=== PATIENT | male | born 1950 | race Caucasian/White ===

== ENCOUNTER 2021-09-11 18:14 | Emergency (ER) | payer MEDICARE, OTHER, SELFPAY ==
[2021-09-11 18:38] VITALS: BP 152/90; PULSE 88; RESP 18; TEMP 35.9; O2SAT 98; BMI 24.3
--- NOTE | 2021-09-11 19:06 | W.ED.GENADLT ---
HPI - General Adult General: Chief complaint: Airway/Esophagus Foreign Body Stated complaint: Choking Something stuck in throat Time Seen by Provider: 09/11/21 18:54 History of Present Illness: HPI narrative: 71-year-old male with no prior history of esophageal stricture or obstruction. He presents after eating pork tenderloin around 2 hours ago, and feels like he has a piece stuck in my throat . He points to his mid chest. He is not having significant pain. No evidence of bleeding. He has not been retching or vomiting. He is having trouble with secretions, but not all of them. He brings in a spit bucket with him. Onset (ago): hour(s) (2) Location: neck and chest Radiation: non-radiation Severity: mild Pain Consistency: constant Relieving factors: none Associated symptoms: Reports chest pain (Not pain, discomfort and obstructed feeling) and nausea; Deny cough, diaphoresis, dyspnea, fevers/chills, short of breath, vomiting or weakness Review of Systems Const: Denies: diaphoresis Eyes: Denies: change in vision Card: Reports: chest pain (Not pain, discomfort and obstructed feeling) Resp: Denies: dyspnea GI: Reports: nausea; Denies: vomiting Physical Exam Const: COMMON NORMALS: no acute distress, patient oriented x3 and alert Chest: COMMONS NORMALS: normal inspection of the chest Resp: COMMON NORMALS: normal respiratory effort, No use of accessory muscles and clear to auscultation bilaterally AUSCULTATION: clear to auscultation bilaterally Cardio: COMMON NORMALS: regular rate and regular rhythm RATE: regular rate RHYTHM: regular rhythm GI: COMMON NORMALS: Normal to inspection, nondistended, normoactive bowel sounds present, Soft to palpation and non-tender PALPATION: Yes Soft to palpation Neuro: COMMON NORMALS: patient oriented x3 SENSORIUM/ORIENTATION: Yes alert Course Vital Signs: Vital signs: Vital Signs Temperature 96.6 F L 09/11/21 18:38 Pulse Rate 68 09/11/21 20:50 Respiratory Rate 16 09/11/21 20:50 Blood Pressure 119/68 09/11/21 20:50 Pulse Oximetry 98 09/11/21 20:50 MDM - General Adult MDM Narrative: Medical decision making narrative: Patient was given glucagon, nitroglycerin, and check the [employer]. This relieved his obstruction. Post relief, chest x-ray shot with Gastrografin showing a clear chest, no evidence of obstruction or rupture. The patient is feeling much better. He is asymptomatic currently, and tolerating oral liquids well. He will be allowed home Discharge Plan Discharge Patient Disposition: Home Clinical Impression: Impacted esophageal foreign body Qualifiers: Encounter type: initial encounter Qualified Code(s): T18.108A - Unspecified foreign body in esophagus causing other injury, initial encounter Condition: Stable Discharge Orders: Discharge ED (Routine); Ordered 09/11/21 Ordered By: True Curran Referrals: Chaitanya Quarles MD [Physician] - 7-10 days Patient Instructions: Opioid Safety Activity Restrictions/Additional Instructions: Let your primary care provider know that you are here with an esophageal obstruction over the weekend. They will want to refer you to surgery for further work-up, likely. The surgery clinic physician name and number is on your discharge instructions to call. Return for any development of chest pain, trouble swallowing, vomiting blood, any other concerning symptoms. Coding Level of Care Code ED Senior Policy Analyst for Chg Fwd Exam Detailed
[2021-09-11] MEDS: nitroglycerin 0.4 mg sublingual Tablet SUBLINGUAL (19:22)
--- NOTE | 2021-09-11 19:45 | XRR_ITS ---
PROCEDURE INFORMATION: Exam: XR Chest Exam date and time: 09/11/2021 7:45 PM Age: 71 years old Clinical indication: Dyspnea; Additional info: With gastrografin esophageal obstruction. PT got a pork chop stuck in throat. Done with gastrografin TECHNIQUE: Imaging protocol: XR of the chest. Views: 1 view. COMPARISON: CR Chest 2 views* [id number] 04/14/2016 10:00 AM FINDINGS: Lungs: There is some mild infiltrate or atelectasis at the left lung base. Pleural spaces: Unremarkable. No pleural effusion. No pneumothorax. Heart/Mediastinum: There is a calcified right hilar lymph node in keeping with old granulomatous disease. Heart is within normal limits of size. Bones/joints: Unremarkable. Gastrointestinal tract: There is some Gastrografin contrast material seen in the distal esophagus and within the stomach. XR/XR chest 1V [id number] IMPRESSION: Mild left basilar infiltrate or atelectasis. Radiation Dose CTDIVOL = (mGy): DLP = (mGy-cm)
[2021-09-11] MEDS: diatrizoate meglumine 30 mL Sol PO (20:01)
[2021-09-11 20:50] VITALS: BP 119/68; PULSE 68; RESP 16; O2SAT 98
== END 2021-09-11 20:51 | disposition home or self-care (01) ==
PROVIDERS: Emergency Provider Emergency Medicine
DX: T18.108A Unspecified foreign body in esophagus causing other injury, initial encounter (principal); X58.XXXA Exposure to other specified factors, initial encounter
CPT/HCPCS: 71045; 96374; 99283; J1610; Q9963

== ENCOUNTER 2022-08-03 16:17 | Emergency (ER) | payer MEDICARE, OTHER, SELFPAY ==
[2022-08-03 17:03] VITALS: BP 154/88; PULSE 78; RESP 16; TEMP 36.6; O2SAT 96; BMI 25.1
--- NOTE | 2022-08-03 20:00 | CTR_ITS ---
PROCEDURE INFORMATION: Exam: CT Head Without Contrast Exam date and time: 08/03/2022 8:28 PM Age: 72 years old Clinical indication: Visual disturbance; Patient HX: Sudden onset of vision loss to left eye this morning, now resolved. ; Additional info: Temp vision loss TECHNIQUE: Imaging protocol: Computed tomography of the head without contrast. Radiation optimization: All CT scans at this facility use at least one of these dose optimization techniques: automated exposure control; mA and/or kV adjustment per patient size (includes targeted exams where dose is matched to clinical indication); or iterative reconstruction. COMPARISON: No relevant prior studies available. RADIATION DOSE METRICS: Total DLP (mGy-cm): 1067.28 FINDINGS: Brain: Normal. No hemorrhage. Unremarkable white matter. No mass effect. Cerebral ventricles: No ventriculomegaly. Paranasal sinuses: Visualized sinuses are unremarkable. No fluid levels. Mastoid air cells: Visualized mastoid air cells are well aerated. Bones/joints: Unremarkable. No acute fracture. Soft tissues: Unremarkable. CT/CT head wo con* [id number] IMPRESSION: No acute intracranial abnormality.
[2022-08-03 20:06] VITALS: PULSE 80; RESP 17; O2SAT 96
--- NOTE | 2022-08-03 20:14 | ED_ITS ---
HPI - Eye Problem General: Chief complaint: Eye Problems Stated complaint: trouble seeing out of L Eye Time Seen by Provider: 08/03/22 19:53 History of Present Illness: 72-year-old male presents with complaints of some blurred vision and vision loss of his left eye. He reports that he had it when he got up this morning. That the vision is returned. I feel like me he had something in medial corner of the left eye. He presents at this time because is not having pain but he just got to think about it was current concerned he might of had a stroke since he had lost the vision. He had no eye pain. He did flush his eye and it seemed of gotten better. At this time he reports no vision changes, pain with eye movement, pressure or any other symptoms. Associated symptoms: Denies fever(s), headache(s), nausea, neck pain or vomiting Review of Systems Const: Denies: fever(s) or chills Eyes: Reports: change in vision and blurry vision; Denies: blind spots, photophobia, eye discomfort, eye redness or seeing flashes ENMT: Denies: throat pain or ear or mastoid pain Card: Denies: chest pain, palpitations or irregular heart rhythm Resp: Denies: dyspnea, wheezing or pain on inspiration GI: Denies: abdominal pain, nausea or vomiting Musc: Denies: neck pain, back pain or muscle weakness Skin/Breast: Denies: rash or pruritus Neuro: Denies: headache(s), numbness in extremities, weakness in extremities, lack of coordination, difficulty walking, dizziness, behavioral changes or Slurred speech present Physical Exam Const: COMMON NORMALS: patient oriented x3 HENMT: COMMON NORMALS: normocephalic, hearing grossly normal bilaterally and moist oral mucous membranes HEAD & SCALP: normocephalic Eye: COMMON NORMALS: conjunctivae normal GENERAL EYE: appearance normal, both eyes and all related structures and normal light reflex ALIGNMENT: Yes alignment normal PERIORBITAL: periorbital findings normal EYELID: eyelids normal CONJUNCTIVA: Yes conjunctivae normal CORNEA: Yes corneas normal and fluorescein used (Unable to check with Wood lamp) DIRECT OPHTHALMOSCOPY: Yes normal light reflex Resp: COMMON NORMALS: normal respiratory effort, No retractions and No use of accessory muscles Cardio: COMMON NORMALS: regular rate and regular rhythm RATE: regular rate RHYTHM: regular rhythm GI: COMMON NORMALS: Soft to palpation and non-tender PALPATION: Yes Soft to palpation Extremity: COMMON NORMALS: normal to inspection, full ROM and capillary refill normal Neuro: COMMON NORMALS: patient oriented x3, CN's II-XII intact bilaterally, moves all extremities, no focal motor deficits, no sensory deficits noted and gait normal Psych: COMMON NORMALS: mental status grossly normal, Normal thought process present, cooperative, normal affect and speech normal SPEECH: Yes normal speech THOUGHT PROCESS: Normal thought process present Skin: COMMON NORMALS: no rashes or lesions noted GENERAL SKIN EXAM: no rashes or lesions noted Course Vital Signs: Vital signs: Vital Signs Temperature 97.8 F 08/03/22 17:03 Pulse Rate 69 08/03/22 21:04 Respiratory Rate 18 08/03/22 21:04 Blood Pressure 127/76 08/03/22 21:04 Pulse Oximetry 95 08/03/22 21:04 Oxygen Delivery Me thod 08/03/22 20:06 MDM - Eye Problem Medical Decision Making Patient was concerned about a stroke but had unlikely stroke symptoms however CT was performed that was negative. Patient likely has something in his eye that cleared. Patient had no symptoms throughout the ER. Nothing on exam. Was unable to perform a Noonan lamp fluorescein test since was lamp was not available. I recommend he follow-up with his developmental services worker tomorrow morning. He was in agreement with that plan. Patient stable and discharged Lab Data Radiology Impressions Head CT 08/03/22 20:00 IMPRESSION: No acute intracranial abnormality. Discharge Plan Discharge Patient Disposition: Home Clinical Impression: Blurred vision, left eye Condition: Stable Discharge Orders: Discharge ED (Routine); Ordered 08/03/22 Ordered By: Balbir Polk Discharge Diet: Usual diet Discharge Activity: Resume usual activity Patient Instructions: Blurred Vision (ED), Opioid Safety, Pain Management, Vision Problems Activity Restrictions/Additional Instructions: Please follow-up with your eye doctor tomorrow to have them recheck your eyes and repeat exam Coding Level of Care Code ED It Assistant for Lonnie Key Exam Comprehensive
[2022-08-03 20:35] VITALS: BP 144/83; PULSE 73; RESP 17; O2SAT 99
[2022-08-03 21:04] VITALS: BP 127/76; PULSE 69; RESP 18; O2SAT 95
== END 2022-08-03 21:06 | disposition home or self-care (01) ==
PROVIDERS: Emergency Provider Student in an Organized Health Care Education/Training Program
DX: H53.8 Other visual disturbances (principal)
CPT/HCPCS: 70450; 99284

== ENCOUNTER 2022-08-04 08:27 | Inpatient (IN) | payer MEDICARE, OTHER, SELFPAY ==
[2022-08-04] VITALS (78 sets, daily range): BP systolic 103–135; BP diastolic 70–97; PULSE 57–84; RESP 0–22; TEMP 36.2–37.3; O2SAT 81–99; BMI 23.6; BMI 25.4
--- NOTE | 2022-08-04 08:32 | CT_ITS ---
WS: [id number] CT HEAD TECHNIQUE: Noncontrast CT of the head obtained from the skullbase to the vertex. CLINICAL INFORMATION: LKW 2230 08/04 STROKE ALERT LT FACIAL DROOP SLURRED SPEECH COMPARISON: None. DLP: All CT scans at [facility] use at least one of these dose optimization techniques: automated e xposure control; mA and/or kV adjustment per patient size (includes targeted exams where dose is matc hed to clinical indication); or iterative reconstruction. FINDINGS: No evidence of intracranial hemorrhage or mass effect. Ventricular system and basal cisterns are mo nt. Mild small vessel changes with mild parenchymal volume loss. No extra-axial fluid collections. No evidence of mass or mass effect. Normal millan-white differentiation.Mild intracranial vascular calcif ication. Calcification involving the RIGHT greater than LEFT M1 segments. Paranasal sinuses and mastoid air cells are well aerated. .Normal visualized soft tissues. CT/CT head wo con* [id number] IMPRESSION: 1. No evidence of intracranial hemorrhage or mass effect. 2. Mild small vessel changes with mild parenchymal volume loss. 3. Mild intracranial vascular calcification. Calcification involving the RIGHT greater than LEFT M1 segments. 4. No other significant findings. Notified Elvin Lynn DO at 08/04/2022 8:41 AM.
[2022-08-04 08:36] LABS: Glucose Point of Care 126 mg/dL (70-110)
--- NOTE | 2022-08-04 08:42 | CT_ITS ---
WS: [id number] CTA HEAD AND NECK TECHNIQUE: Contrast enhanced CTA of the head and neck with coronal and sagittal reformatted images an d maximum intensity projection (MIP) images. NASCET criteria utilized. CLINICAL INFORMATION: CVA COMPARISON: None. DLP: 479.[address] scans at [facility] use at least one of these dose optimization techniques: automated e xposure control; mA and/or kV adjustment per patient size (includes targeted exams where dose is matc hed to clinical indication); or iterative reconstruction. FINDINGS: RIGHT: RIGHT common carotid artery is patent. No significant RIGHT ICA stenosis. ICA is patent to the skull base. LEFT: LEFT common carotid artery is patent. No significant LEFT ICA stenosis. Minimal atheromatous pl aque LEFT carotid bulb. LEFT ICA is patent to the skull base. INTRACRANIAL CTA: RIGHT dominant vertebral artery. Poor intermittent flow in the smaller LEFT vertebral artery with no significant calcified plaque suspicious for dissection. High-grade stenosis of the LEFT vertebral art luis origin. LEFT vertebral artery reconstitutes distally proximal to the basilar origin. Basilar artery is patent with normal flow. Normal vascularity to the FEED MILL TENDER territory bilaterally. Both ICAs are patent at the skull base. Tortuous cavernous carotid arteries. Normal vascularity to th e JAK and MCA territories bilaterally. No evidence of flow-limiting stenosis or aneurysm. Slight atelectasis in the dependent upper lungs. Straightening of the normal cervical lordosis. Mild spondylitic changes cervical spine. Normal posterior nasopharynx. Normal parapharyngeal fat. Normal s alivary glands. CT/CT angio headneck* [id number] IMPRESSION: 1. No significant ICA stenosis bilaterally. Both ICAs are patent to the skull base. 2. No significant flow-limiting intracranial stenosis. Normal vascularity to t he JAK and MCA territories bilaterally. 3. RIGHT dominant vertebral artery. Poor intermittent flow in the smaller LEFT vertebral artery with no significant calcified plaque may be due to dissection . Severe stenosis at the LEFT vertebral origin. LEFT vertebral artery reconstit utes distally. 4. Normal flow in the basilar artery and FEED MILL TENDER territory bilaterally. 5. No other suspicious findings. Notified Elvin Lynn DO at 08/04/2022 9:18 AM.
--- NOTE | 2022-08-04 08:43 | ECG_ITS ---
[facility] Test Date: 2022-08-04 Pat Name: Lucho Echeverria Department: Room: Gender: Male Metalizer: : 1950 Requested By: Elvin Cleary Order Number: [id number] [place] MD: Bety Mason M.D. Measurements Intervals Lamar Rate: 69 P: 38 MD: 162 QRS: 51 QRSD: 102 T: 57 QT: 373 QTc: 401 Interpretive Statements SINUS RHYTHM Compared to ECG 04/14/2016 09:28:27 No significant changes Electronically Signed On 08-04-2022 12:46:19 CDT by Bety Mason M.D. [id number]
--- NOTE | 2022-08-04 08:47 | ED_ITS ---
HPI - Neuro Symptoms/Deficit General: Chief Complaint: Neuro Symptoms/Deficit Stated Complaint: STROKE Time Seen by Provider: 08/04/22 08:42 Source: patient Mode of arrival: ambulatory History of Present Illness: 72-year-old male returns to the emergency room with left-sided facial droop weakness and confusion. Patient was seen last night he complained of some visual difficulties felt like he had something in his eye and then it had gotten better a CT was done and was negative he had no other localizing symptoms and he was discharged home with follow-up with ophthalmology. Onset (ago): hour(s) Last Observed Normal: 22:30 Severity: severe Quality: weak Relieving factors: none Exacerbating factors: none Context: gradual onset Associated symptoms: Reports tingling and weakness; Deny chest pain, cough, diaphoresis, fevers/chills, headache(s), anorexia, malaise, nausea, seizures, short of breath, syncope, vertigo or vomiting Treatments Prior to Arrival: none Review of Systems Const: Denies: fever(s), chills, fatigue, malaise or diaphoresis ENMT: Denies: throat pain, ear or mastoid pain, nasal discharge or nasal congestion Card: Denies: chest pain or syncope Resp: Denies: dyspnea, productive cough or non-productive cough GI: Denies: abdominal pain, nausea or vomiting : Denies: flank pain, difficulty urinating, dysuria, urinary frequency or urinary urgency Musc: Denies: neck pain or back pain Skin/Breast: Denies: rash or pruritus Neuro: Denies: headache(s) or vertigo [facility] ED PFSH: Medical History (Updated 08/04/22 @ 13:19 by Elvin Lynn DO) BPH (benign prostatic hyperplasia) Hyperlipidemia Hypertension Hypothyroidism Surgical History (Updated 08/04/22 @ 12:43 by Preston Cortez MD) History of exploratory laparotomy Secondary to bowel obstruction, adhesions found Family History (Updated 08/04/22 @ 12:44 by Preston Cortez MD) Other Hypertension Stroke Social History (Updated 08/04/22 @ 12:44 by Preston Cortez MD) Smoking and tobacco status: current every day smoker smokeless tobacco Smokeless tobacco user: chewing tobacco Alcohol intake: never NIH stroke score NIHSS: Level Of Consciousness - 1a: 0 Level Of Consciousness Questions - 1b: Both Correct Level Of Consciousness Commands - 1c: Both Correct Best G aze - 2: Partial Gaze Palsy Visual Moran - 3: Partial Hemianopia Facial Palsy - 4: Minor Paralysis Motor Arm Right - 5: No Drift Motor Arm Left - 5: No Drift Motor Leg Right - 6: No Drift Motor Leg Left - 6: No Drift Limb Ataxia - 7: Present In Two Limbs Sensory - 8: Mild To Moderate Loss Best Language - 9: Mild/Moderate Aphasia Dysarthia - 10: Mild/Moderate Dysarthia Extinction And Inattention - 11: 0 Score: Total Score: 8 Physical Exam Const: GENERAL APPEARANCE: cooperative and comfortable ORIENTATION/CONSCIOUSNESS: Yes awake HENMT: COMMON NORMALS: normocephalic, atraumatic and hearing grossly normal bilaterally HEAD & SCALP: normocephalic and atraumatic Resp: COMMON NORMALS: normal respiratory effort, No retractions, No use of accessory muscles and clear to auscultation bilaterally AUSCULTATION: clear to auscultation bilaterally Cardio: COMMON NORMALS: regular rate, regular rhythm and No murmurs present (Cardio) RATE: regular rate RHYTHM: regular rhythm GI: COMMON NORMALS: Soft to palpation and No hepatosplenomegaly present AUSCULTATION: Yes normoactive bowel sounds PALPATION: Yes Soft to palpation, No Tenderness to palpation present (GI), No Guarding due to palpation present (GI) and Yes No hepatosplenomegaly present Extremity: COMMON NORMALS: normal to inspection, capillary refill normal, no clubbing, cyanosis or edema, no calf tenderness and no pedal edema Neuro: OTHER: Bilateral ataxia. Skin: COMMON NORMALS: no rashes or lesions noted GENERAL SKIN EXAM: no rashes or lesions noted Course Vital Signs: Vital signs: Vital Signs Temperature 97.1 F L 08/04/22 08:34 Pulse Rate 73 08/04/22 08:42 Respiratory Rate 18 08/04/22 08:34 Blood Pressure 118/97 08/04/22 08:42 Pulse Oximetry 94 08/04/22 08:42 Oxygen Delivery Me thod 08/04/22 08:42 MDM - Neuro Symptoms/Deficit Medical Decision Making Clinically preserved posterior circulation stroke is out of the window for tPA and CTA of the head and neck did not show any embolisms. We will go and admit the patient discussed Dr. Santana she was also in the department and seen the patient discussed with hospitalist orders are written. Medical Records I reviewed the patient's medical records. Lab Data I reviewed the patient's lab results. : 08/04/22 08:40 08/04/22 08:[address] 08/04/22 08:32 IMPRESSION: 1. No evidence of intracranial hemorrhage or mass effect. 2. Mild small vessel changes with mild parenchymal volume loss. 3. Mild intracranial vascular calcification. Calcification involving the RIGHT greater than LEFT M1 segments. 4. No other significant findings. Notified Elvin Lynn DO at 08/04/2022 8:41 AM. Head/Neck CTA 08/04/22 08:42 IMPRESSION: 1. No significant ICA stenosis bilaterally. Both ICAs are patent to the skull base. 2. No significant flow-limiting intracranial stenosis. Normal vascularity to the JAK and MCA territories bilaterally. 3. RIGHT dominant vertebral artery. Poor intermittent flow in the smaller LEFT vertebral artery with no significant calcified plaque may be due to dissection. Severe stenosis at the LEFT vertebral origin. LEFT vertebral artery reconstitutes distally. 4. Normal flow in the basilar artery and CENTRAL OFFICE INSPECTOR territory bilaterally. 5. No other suspicious findings. Notified Elvin Lynn DO at 08/04/2022 9:18 AM. Chest X-Ray 08/04/22 10:48 IMPRESSION: No acute cardiopulmonary process. Laboratory Results WBC 16.2 10^3/uL (4.0-10.0) H 08/04/22 08:40 RBC 5.45 10^6/uL (4.1-5.3) H 08/04/22 08:40 Hgb 16.2 g/dL (11.7-16.6) 08/04/22 08:40 Hct 50.0 % (42.0-52.0) 08/04/22 08:40 MCV 91.7 fl (80-94) 08/04/22 08:40 MCH 29.7 pg (28.0-34.0) 08/04/22 08:40 MCHC 32.4 g/dL (30.0-36.0) 08/04/22 08:40 RDW 13.2 % (12.1-15.1) 08/04/22 08:40 Plt Count 299 10^3/cmm (130-400) 08/04/22 08:40 MPV 10.5 fL (7.4-10.4) H 08/04/22 08:40 Neut % (Auto) 49.4 % 08/04/22 08:40 Lymph % (Auto) 39.7 % 08/04/22 08:40 Barton % (Auto) 6.8 % 08/04/22 08:40 Eos % (Auto) 3.0 % 08/04/22 08:40 Baso % (Auto) 0.7 % 08/04/22 08:40 Neut # (Auto) 8.01 10^3/uL (1.8-7.7) H 08/04/22 08:40 Lymph # (Auto) 6.4 10^3/uL (0.8-4.8) H 08/04/22 08:40 Barton # (Auto) 1.1 10^3/uL (0.2-0.9) H 08/04/22 08:40 Eos # (Auto) 0.5 10^3/uL (0.0-0.8) 08/04/22 08:40 Baso # (Auto) 0.1 10^3/uL (0.0-0.1) 08/04/22 08:40 Nucleated RBC % (auto) 0 % 08/04/22 08:40 Nucleated RBCs # 0.0 /100WBC 08/04/22 08:40 PT 14.20 SECONDS (12.1-14.9) 08/04/22 08:51 INR 1.07 (0.8-1.2) 08/04/22 08:51 APTT 23.0 SECONDS (23.9-36.7) L 08/04/22 08:51 Sodium 136 mmol/L (136-145) 08/04/22 08:40 Potassium 4.3 mmol/L (3.5-5.1) 08/04/22 08:40 Chloride 104 mmol/L (98-107) 08/04/22 08:40 Carbon Dioxide 21 mmol/L (22-29) L 08/04/22 08:40 Anion Gap 15.3 (5-19) 08/04/22 08:40 BUN 16 mg/dL (8-23) 08/04/22 08:40 Creatinine 1.1 mg/dL (0.7-1.2) 08/04/22 08:40 GFR Calculation Not Reportable 08/04/22 08:40 Glucose 137 mg/dL (65-115) H 08/04/22 08:40 POC Glucose 126 mg/dL (70-110) H 08/04/22 08:32 Estimat Average Glucose 114 08/04/22 08:40 Hemoglobin A1c 5.6 % (4.0-6.0) 08/04/22 08:40 Calculated Osmolality 285 mOsm/kg (285-295) 08/04/22 08:40 Calcium 9.1 mg/dL (8.5-10.5) 08/04/22 08:40 Total Bilirubin 1.1 mg/dL (0.15-1.2) 08/04/22 08:40 AST 19 U/L (0-40) 08/04/22 08:40 ALT 15 U/L (0-41) 08/04/22 08:40 Alkaline Phosphatase 83 U/L (40-130) 08/04/22 08:40 Total Protein 7.0 g/dL (6.6-8.7) 08/04/22 08:40 Albumin 4.1 g/dL (3.5-5.2) 08/04/22 08:40 Globulin 2.9 g/dL (1.3-4.6) 08/04/22 08:40 TSH 1.38 uIU/mL (0.27-4.20) 08/04/22 08:40 Urine Color Yellow (Yellow) 08/04/22 09:55 Urine Appearance Clear (CLEAR) 08/04/22 09:55 Urine pH 5 (5-7) 08/04/22 09:55 Ur Specific Taylor 1.005 (1.005-1.030) 08/04/22 09:55 Urine Protein Neg (Negative) 08/04/22 09:55 Urine Glucose (UA) Norm (Normal) 08/04/22 09:55 Urine Ketones Negative (Negative) 08/04/22 09:55 Urine Blood Neg (Negative) 08/04/22 09:55 Urine Nitrate Negative (Negative) 08/04/22 09:55 Urine Bilirubin Neg (Negative) 08/04/22 09:55 Urine Urobilinogen Norm mg/dL (Negative) 08/04/22 09:55 Ur Leukocyte Esterase Negative (Negative) 08/04/22 09:55 Urine Opiates Screen Negative ng/mL (Negative) 08/04/22 09:55 Ur Barbiturates Screen Negative ng/mL (Negative) 08/04/22 09:55 Ur Phencyclidine Scrn Negative ng/mL (Negative) 08/04/22 09:55 Ur Amphetamines Screen Negative ng/mL (Negative) 08/04/22 09:55 U Benzodiazepines Scrn Negative ng/mL (Negative) 08/04/22 09:55 Urine Cocaine Screen Negative ng/mL (Negative) 08/04/22 09:55 U Marijuana (THC) Screen Negative ng/mL (Negative) 08/04/22 09:55 Discharge Plan Discharge Patient Disposition: Admitted As Inpatient Clinical Impression: Acute ischemic multifocal posterior circulation stroke, Blurred vision, left eye, Hypertension, Hyperlipidemia Condition: Stable Coding Level of Care Code ED Program Manager Rn for Lonnie Key Exam Detailed
[2022-08-04 08:50] LABS: Basophils # 0.1 10^3/uL (0.0-0.1); Basophils % 0.7 %; Eosinophils # 0.5 10^3/uL (0.0-0.8); Hemoglobin 16.2 g/dL (11.7-16.6); Lymphocytes # 6.4 10^3/uL (0.8-4.8); Lymphocytes % 39.7 %; Mean Corpuscular HGB Conc 32.4 g/dL (30.0-36.0); Mean Corpuscular Hemoglobin 29.7 pg (28.0-34.0); Mean Corpuscular Volume 91.7 fl (80-94); Mean Platelet Volume 10.5 fL (7.4-10.4); Monocytes # 1.1 10^3/uL (0.2-0.9); Monocytes % 6.8 %; Neutrophils # 8.01 10^3/uL (1.8-7.7); Neutrophils % 49.4 %; Nucleated Red Blood Cells % 0 %; Platelet Count 299 10^3/cmm (130-400); Red Blood Count 5.45 10^6/uL (4.1-5.3); Red Cell Distribution Width 13.2 % (12.1-15.1); White Blood Count 16.2 10^3/uL (4.0-10.0)
[2022-08-04] MEDS: iohexol 350 mg/mL 100 mL Btl IV (09:01)
[2022-08-04 09:06] LABS: Alanine Aminotransferase 15 U/L (0-41); Albumin Level 4.1 g/dL (3.5-5.2); Alkaline Phosphatase 83 U/L (40-130); Blood Urea Nitrogen 16 mg/dL (8-23); Calcium 9.1 mg/dL (8.5-10.5); Carbon Dioxide 21 mmol/L (22-29); Chloride 104 mmol/L (98-107); Globulin 2.9 g/dL (1.3-4.6); Glucose 137 mg/dL (65-115); Osmolality Calculated 285 mOsm/kg (285-295); Sodium 136 mmol/L (136-145); Total Bilirubin 1.1 mg/dL (0.15-1.2)
[2022-08-04 09:07] LABS: Anion Gap 15.3 (5-19); Aspartate Amino Transferase 19 U/L (0-40); Potassium 4.3 mmol/L (3.5-5.1)
[2022-08-04 09:15] LABS: INR 1.07 (0.8-1.2)
--- NOTE | 2022-08-04 09:16 | PM.SAN ---
Stroke Alert Activation ED Arrival Date: 08/04/22 ED Arrival Time: 08:34 ED Physican at Bedside: 08:34 Last Known Normal/at Baseline: 3-4 hours ago Other Last Known Well Infomation: The patient was seen in the emergency department yesterday for visual loss on the left. The nurse who saw him was present in the emergency department and he said it was left eye only. At the time he was seen by Dr. Balbir Polk at 1953 yesterday he said that his visual symptoms had resolved. He said the visual loss was present when he woke up yesterday so by the time he was seen yesterday afternoon he was out of the range for tPA. Everyone agreed that he had no neurologic signs or symptoms at the time that he was seen yesterday. He was brought in this morning because he was confused when he woke up. EMS reported left hemiparesis that resolved by the time I saw the patient and instead he had ataxia in all 4 limbs, ratchety eye movements and a dense left visual field cut. He is mildly confused. Speech mildly dysarthric. His CT scan of the head does not show an acute stroke. Dr. Hinkle and I both noticed that the left vertebral artery is poorly seen and thrombus in the proximal portion of the left vertebral versus dissection considerations. Full flow in the basilar and both posterior cerebral arteries. Stroke Alert Activated by: EMS Stroke Alert Activation Time: 08:18 Stroke MD @ Bedside Time: 08:40 NIH Stroke Scale Time: 08:40 NIH stroke score NIHSS: Level Of Consciousness - 1a: 0 Level Of Consciousness Questions - 1b: Both Correct Level Of Consciousness Commands - 1c: Both Correct Best Gaze - 2: Normal Visual Moran - 3: Complete Hemianopia Facial Palsy - 4: Minor Paralysis Motor Arm Right - 5: Drift Motor Arm Left - 5: Drift Motor Leg Right - 6: Drift Motor Leg Left - 6: Drift Limb Ataxia - 7: Present In Two Limbs Sensory - 8: Normal Best Language - 9: No Aphasia Dysarthia - 10: Mild/Moderate Dysarthia Extinction And Inattention - 11: 0 Score: Total Score: 10 Stroke Alert Data/Treatment Time to CT of Head: 08:39 CT Results Time: 08:46 CT Impression: No acute findings ? 1.? No evidence of intracranial hemorrhage or mass effect. 2.? Mild small vessel changes with mild parenchymal volume loss. 3.? Mild intracranial vascular calcification. Calcification involving the RIGHT greater than LEFT M1 segments. 4.? No other significant findings. ? Notified Elvin Lynn DO at 08/04/2022 8:41 AM. Signed By: Geraldo Hinkle MD Signed Date/Time: 08/04/22 0846 tPA Contraindication: tPA Contraindication: Medical contraindication tPA Admin Prior to Arrival: No Critical Care Time Critical Care Time: 30 - 74 mins A&P Assessment and plan (1) Acute ischemic multifocal posterior circulation stroke: Clinically he has involvement of the right posterior cerebral artery with left homonymous hemianopsia, ataxia in all 4 limbs and ratchety eye movements. He will be best served by antiplatelet therapy, pushing normal saline, cardiac work-up. Lipitor. Keep him flat today. He will need to be admitted. 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
--- NOTE | 2022-08-04 09:39 | PC.PHAR ---
pt unable to verify medications-pts verified pts medications- states the pt takes no otc medications-and only takes the 4 prescribed medications that are entered
[2022-08-04] MEDS: sodium chloride 0.9% 1,000 ML 999 ML IV (09:59)
[2022-08-04 10:17] LABS: Add Urine Microscopic? NO; Charge for UA Resulting for Rev
[2022-08-04 10:22] LABS: Bilirubin Urine Neg (Negative); Blood Urine Neg (Negative); Glucose Urine UA Norm (Normal); Ketones Urine Negative (Negative); Leukocyte Esterase Urine Negative (Negative); Nitrate Urine Negative (Negative); Protein Urine Neg (Negative); Specific Gravity, Urine 1.005 (1.005-1.030); Urine Appearance Clear (CLEAR); Urine Color Yellow (Yellow); Urobilinogen Urine Norm (Negative); pH Urine 5 (5-7)
[2022-08-04 10:28] LABS: Amphetamines Screen Urine Negative (Negative); Barbiturates Screen Urine Negative (Negative); Benzodiazepines Screen Urine Negative (Negative); Cocaine Screen Urine Negative (Negative); Opiate Screen Urine Negative (Negative); PCP Screen Urine Negative (Negative); THC Screen Urine Negative (Negative)
--- NOTE | 2022-08-04 10:48 | XRR_ITS ---
PROCEDURE INFORMATION: Exam: XR Chest Exam date and time: 08/04/2022 10:55 AM Age: 72 years old Clinical indication: Other: Stroke protocol; Additional info: CVA TECHNIQUE: Imaging protocol: Radiologic exam of the chest. Views: 1 view. Total images: 929 COMPARISON: CR XR chest 1V 13055 09/11/2021 7:53 PM FINDINGS: Lungs: Calcified node in right hilum unchanged. Pleural spaces: Unremarkable. No pleural effusion. No pneumothorax. Heart/Mediastinum: Unremarkable. No cardiomegaly. Bones/joints: Unremarkable. XR/XR chest 1V portable 50030 IMPRESSION: No acute cardiopulmonary process.
[2022-08-04] MEDS: sodium chloride 0.9% 1,000 ML 150 ML IV ×2 (11:09→20:08)
[2022-08-04 11:23] LABS: Estmated Average Glucose 114; Hemoglobin A1C 5.6 % (4.0-6.0)
--- NOTE | 2022-08-04 11:24 | P.HP_ITS ---
Providers/Chief Complaint Chief Complaint: STROKE History of Present Illness Lucho Echeverria is a 72 year old male who presents to the emergency department with mental status change. He had recently been seen with blurry vision in the left eye on August 03. During that visit no neurologic abnormality was found. At that time a CT scan of the head was negative, and stroke was felt unlikely. According to family his last known normal was approximately at that emergency department visit. Family reports this morning his brother got a call and the patient seemed confused. They somehow got disconnected so he went over to check on his brother and he was not acting appropriate. EMS was dispatched. Today, EMS had reported he had left hemiparesis. Emergency department physician and neurology saw him and ataxia in 4 limbs, and a dense left visual field cut and dysarthric speech was present. He was determined not to be a candidate for tPA. CTA demonstrated the left vertebral artery is poorly seen and thrombus or dissection could be considerations for this. He was not deemed a candidate for any type of thrombectomy. Patient himself seems confused, but can answer direct questions. He denies any pain currently. He wonders why he is here, and then wonders where here is. Review of Systems General: Reports: ROS unobtainable due to mental status Medications/Allergies Home Medications Medication Instructions Recorded Confirmed Last Taken Type amlodipine 5 mg tablet 5 mg PO DAILY 08/04/22 08/04/22 Unknown History levothyroxine 100 mcg tablet 100 mcg PO DAILY 08/04/22 08/04/22 Unknown History (Euthyrox) lisinopril 20 mg tablet 20 mg PO DAILY 08/04/22 08/04/22 Unknown History simvastatin 10 mg tablet 10 mg PO BEDTIME 08/04/22 08/04/22 Unknown History Allergies Allergy/AdvReac Type Severity Reaction Status Date / Time No Known Allergies Allergy Verified 08/03/22 17:06 PFSH Acute PFSH: Medical History (Updated 08/04/22 @ 12:53 by Preston Cortez MD) BPH (benign prostatic hyperplasia) Hyperlipidemia Hypertension Hypothyroidism Surgical History (Updated 08/04/22 @ 12:43 by Preston Cortez MD) History of exploratory laparotomy Secondary to bowel obstruction, adhesions found Family History (Updated 08/04/22 @ 12:44 by Preston Cortez MD) Other Hypertension Stroke Social History (Updated 08/04/22 @ 12:44 by Preston Cortez MD) Smoking and tobacco status: current every day smoker smokeless tobacco Smokeless tobacco user: chewing tobacco Alcohol intake: never Vitals/I&O/Wt Last Vital Signs Temp 97.1 F L 08/04/22 08:34 Pulse 73 08/04/22 08:34 Resp 18 08/04/22 08:34 BP 118/97 08/04/22 08:34 Pulse Ox 96 08/04/22 08:34 O2 Del Method 08/04/22 08:34 08/03/22 08/04/22 08/04/22 22:59 06:59 14:59 Intake Total 1000 / 1000 Balance 1000 / 1000 Weight last 48 hrs Weight 74.525 kg Physical Exam Narrative: General is a confused male, with ataxic limbs. HEENT: Atraumatic and normocephalic. Pupils are round. I have difficulty determining whether he has vision on either side. When presented with opp osition he does not seem to blink. Oropharynx is clear. Tongue is midline. Neck is supple no lymphadenopathy thyromegaly Cardiovascular regular rate and rhythm without murmur, no S3 or S4 Lungs clear no wheezing or crackles Abdomen is soft nontender positive bowel sounds. No obvious organomegaly exam is deferred Extremities no cyanosis clubbing or edema, cap refill brisk Skin no rash Neuro: Profoundly ataxic. Visual field loss noted. Confused. He is able to move all 4 extremities. I do not notice a hemiparesis. I get an NIHSS score of approximately 9. It appears the emergency department physician got an 8, neurology a 10. Data : 08/04/22 08:40 08/04/22 08:40 Other Labs: INR is normal LFTs are normal Hemoglobin A1c 5.6 LFTs normal TSH normal Urinalysis negative Urine drug screen negative Chest x-ray no infiltrate CTA neck demonstrates poor intermittent flow left vertebral artery with no significant plaque, severe stenosis left vertebral origin. No other flow- limiting abnormalities are noted CT head no acute findings A&P Assessment and plan (1) Acute ischemic multifocal posterior circulation stroke: Patient presenting with acute posterior circulations stroke Appreciate neurology consultation Keep patient flat, hydrate Initiate Plavix and aspirin High intensity statin Therapy consultations Echocardiogram Telemetry Consider outpatient event monitor Currently he will require one-to-one sitter when family is not present. Permissive hypertension DVT prophylaxis with Lovenox Status: Acute (2) Hypertension: Hold antihypertensives Permissive hypertension in the face of CVA Status: Acute (3) Hypothyroidism: TSH was checked and normal Status: Acute (4) Hyperlipidemia: Changed to high intensity statin Lipitor 80 mg daily Status: Acute Plan Other medical problems as outlined in his past medical history Full code Lovenox for DVT prophylaxis Attestations Medical Necessity Statement*: Will require greater than 2 midnight stay for evaluation and treatment of CVA with significant physical deficits Coding Level of Care Code Acute 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
[2022-08-04 11:25] LABS: Thyroid Stimulating Hormone 1.38 uIU/mL (0.27-4.20)
--- NOTE | 2022-08-04 11:26 | ECG_ITS ---
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 Measurements Intervals [place] Rate: 65 P: 52 [place]: 186 QRS: 58 QRSD: 99 T: 68 QT: 384 QTc: 400 Interpretive Statements SINUS RHYTHM Compared to ECG 08/04/2022 08:37:51 No significant changes Electronically Signed On 08-04-2022 20:40:42 CDT by Bety Mason M.D. [id number]
[2022-08-04] MEDS: midazolam 1 mg/mL INJ 2 mL IVP (12:27)
[2022-08-04] MEDS: fentaNYL 50 mcg/mL INJ 2mL IVP ×2 (12:27→16:14)
--- NOTE | 2022-08-04 14:14 | P.CONIM_ITS ---
Providers/Reason For Consult Consulting Physician/Specialty*: Urology/Orta Reason for Consult*: Urinary retention, inability to pass catheter Requesting Physician: Dr. Cortez Attending Physician: Dr. Cortez Primary Care Provider: Unknown History of Present Illness History of Present Illness Lucho Echeverria is a 72 year old male who I evaluated for the first time today at the request of Dr. Cortez. Patient has suffered a stroke and is being admitted through the emergency department for treatment of that. Apparently has had some fairly protracted period of time of lower urinary tract symptoms including dribbling of urine and poor force of stream. He is on no prostate medications. Attempts at catheter placement for volume management were unsuccessful with multiple attempts and multiple catheters. I was consulted for further evaluation. ` History obtained from patient and patient's family. Neither deny history of urethral stricture or prostate surgery. He reports that at some point in the past he was seen by urologist who looked into the bladder and he came off the table and never returned. Has not been on any prostate medication. 1 family member states that for at least 15+ years he has voided frequently with small amounts. Does drink a lot of fluid but never really voids very much at a time. No obvious hematuria was noted by anyone. Procedure: BEDSIDE FLEXIBLE CYSTOSCOPY with catheter placement over wire Patient was prepped with Betadine solution. Drape was placed. 2% lidocaine jelly was instilled into the urethra than a 16 Macedonian flexible cystoscope was advanced under direct vision into the urethra. The urethra was examined with advancement and it was normal. There is no false passages or strictures. Prostate was enlarged. He had a distended bladder. No gross lesions were identified on quick survey. Given these findings it was likely that he was simply clamping down on his external sphincter when the catheter was were being attempted to be passed earlier. A guidewire was passed through the scope and curled into the bladder and then a 16 Macedonian king salmon tip catheter was advanced over the guidewire into the bladder and 10 cc placed in the balloon with good function of the catheter confirmed before removing the guidewire. He tolerated procedure well without complications and was turned back over to the nursing staff with anticipation of admission as scheduled for treatment of his stroke. Review of Systems General: Reports: ROS unobtainable due to mental status Medications/Allergies Home Medications Medication Instructions Recorded Confirmed Last Taken Type amlodipine 5 mg tablet 5 mg PO DAILY 08/04/22 08/04/22 Unknown History levothyroxine 100 mcg tablet 100 mcg PO DAILY 08/04/22 08/04/22 Unknown History (Euthyrox) lisinopril 20 mg tablet 20 mg PO DAILY 08/04/22 08/04/22 Unknown History simvastatin 10 mg tablet 10 mg PO BEDTIME 08/04/22 08/04/22 Unknown History Allergies Allergy/AdvReac Type Severity Reaction Status Date / Time No Known Allergies Allergy Verified 08/03/22 17:06 Current Medications Generic Name Dose Route Start Last Admin Trade Name Cameronq PRN Reason Stop Dose Admin Sodium Chloride 1,000 mls @ 150 mls/hr 08/04/22 09:15 08/04/22 11:09 Sodium Chloride 0.9% IV 150 mls/hr .[id number] QUENTIN Administration PFSH Acute PFSH: Medical History BPH (benign prostatic hyperplasia) Hyperlipidemia Hypertension Hypothyroidism Surgical History History of exploratory laparotomy Secondary to bowel obstruction, adhesions found Family History Other Hypertension Stroke Social History Smoking and tobacco status: current every day smoker smokeless tobacco Smokeless tobacco user: chewing tobacco Alcohol intake: never Vitals/I&O/Wt Last Vital Signs Temp 97.1 F L 08/04/22 08:34 Pulse 70 08/04/22 11:00 Resp 18 08/04/22 08:34 BP 118/97 08/04/22 08:42 Pulse Ox 97 08/04/22 11:00 O2 Del Method 08/04/22 11:00 08/03/22 08/04/22 08/04/22 22:59 06:59 14:59 Intake Total 1000 / 1000 Balance 1000 / 1000 Weight last 48 hrs Weight 164 lb 4.8 oz Physical Exam Const: COMMON NORMALS: no acute distress, alert and well nourished GENERAL APPEARANCE: well kempt and well developed HENMT: COMMON NORMALS: normocephalic HEAD & SCALP: normal to inspection and normocephalic Neck/C-Spine: GENERAL: Yes normal visual inspection Resp: COMMON NORMALS: normal respiratory effort EFFORT & INSPECTION: Yes able to speak in complete sentences, No labored and No Actively coughing GI: OTHER: Soft, nontender. Bladder feels distended. : OTHER: Normal male genitalia. Circumcised phallus with normal meatus. Scrotum is grossly normal. Testicles descended bilaterally without masses or tenderness. No obvious inguinal hernias. Normal perineum. Prostate is large. No distinct nodularity felt. Extremity: COMMON NORMALS: no clubbing, cyanosis or edema Neuro: SENSORIUM/ORIENTATION: Yes alert Psych: COMMON NORMALS: mental status grossly normal APPEARANCE: Yes grossly normal and Yes well kempt ATTITUDE: Yes calm and Yes engaged MOOD & AFFECT: Yes anxious OTHER: Confused. He is able to be calm down by his family. Skin: COMMON NORMALS: no rashes or lesions noted and no jaundice GENERAL SKIN EXAM: no rashes or lesions noted Data : 08/04/22 08:40 08/04/22 08:40 A&P Assessment and plan (1) Acute urinary retention: Status: Acute (2) Difficult Bello catheter placement: Status: Acute (3) BPH loc w urin obs/LUTS: Longstanding lower urinary tract symptoms most likely consistent with BPH/obstruction. Recommendations for Bello catheter placed today include use it as long as needed and then discharge at will. Status: Acute Plan 1. Would recommend starting TAMSULOSIN 0.4 mg p.o. nightly Consult Attestations Medical Necessity Statement: See attending Coding Level of Care Code Acute Head Of Visual Merchandising for [facility] Diagnoses Acute urinary retention R33.8 Difficult Bello catheter placement T83.9XXA BPH loc w urin obs/LUTS N40.1
[2022-08-04] MEDS: morphine 4 mg/mL SDV 1 mL IVP (14:20)
[2022-08-04] MEDS: lidocaine 2% Urojet 20 mL TOPICAL (14:30)
[2022-08-04] MEDS: midazolam 1 mg/mL INJ 2 mL 2 MG IVP (16:14)
--- NOTE | 2022-08-04 18:45 | PC.NURSE ---
spoke with provider to report patient continues to try to get out of bed despite the simons this nurse irrigated simons and few small clots was removed and all irrigation removed small amount of drainage noted to head of appendage In structions received and read back to give haldol 5 mg IM x1 and morphine q4H IVP PRN
[2022-08-04] MEDS: haloperidol inj 5 mg/mL INJ 1 mL IM (18:51)
[2022-08-04] MEDS: morphine 4 mg/mL SDV 1 mL 2 MG IVP ×2 (19:14→23:30)
[2022-08-04] MEDS: enoxaparin 40 mg/0.4 mL Syringe SUBCUT (19:50)
[2022-08-04] MEDS: LORazepam 2 mg/mL INJ 1 mL 1 MG IM ×2 (19:51→23:15)
--- NOTE | 2022-08-04 20:16 | PC.NURSE ---
Manual irrigation to simons. Blood clots returned. Bladder scan shows 24 ml. Will monitor.
--- NOTE | 2022-08-04 23:35 | PC.NURSE ---
Bello manually irrigated. Small blood clots returned. Bladder scan shows 59 ml.
--- NOTE | 2022-08-04 23:42 | PC.NURSE ---
1 mg Ativan wasted with BURT Vasquez.
--- NOTE | 2022-08-04 23:42 | PC.NURSE ---
Patient attempting to get out of bed, continually saying I need to pee. Patient becoming combative with family as family is trying to keep patient in bed. Dr. Luo notified. See orders.
[2022-08-05] VITALS: BP 124/73; PULSE 66; RESP 17; TEMP 36.5; O2SAT 94
[2022-08-05] MEDS: sodium chloride 0.9% 1,000 ML 150 ML IV ×3 (01:03→16:28)
[2022-08-05 04:00] VITALS: BP 103/68; PULSE 77; RESP 17; TEMP 37.2; O2SAT 96
--- NOTE | 2022-08-05 04:18 | PC.NURSE ---
Manual irrigation done. Small blood clots returned. 53 ml on bladder scan.
[2022-08-05] MEDS: OLANZapine 10 mg VIAL IM (04:44)
[2022-08-05 05:00] LABS: Basophils # 0.1 10^3/uL (0.0-0.1); Basophils % 0.5 %; Eosinophils # 0.2 10^3/uL (0.0-0.8); Eosinophils % 1.1 %; Hematocrit 43.7 % (42.0-52.0); Hemoglobin 13.9 g/dL (11.7-16.6); Lymphocytes # 4.3 10^3/uL (0.8-4.8); Lymphocytes % 28.3 %; Mean Corpuscular HGB Conc 31.8 g/dL (30.0-36.0); Mean Corpuscular Hemoglobin 29.1 pg (28.0-34.0); Mean Corpuscular Volume 91.4 fl (80-94); Mean Platelet Volume 10.7 fL (7.4-10.4); Monocytes # 1.2 10^3/uL (0.2-0.9); Monocytes % 7.6 %; Neutrophils # 9.56 10^3/uL (1.8-7.7); Neutrophils % 62.2 %; Nucleated Red Blood Cells % 0 %; Platelet Count 211 10^3/cmm (130-400); Red Blood Count 4.78 10^6/uL (4.1-5.3); Red Cell Distribution Width 13.1 % (12.1-15.1); White Blood Count 15.3 10^3/uL (4.0-10.0)
--- NOTE | 2022-08-05 05:27 | PC.NURSE ---
Two family members have stayed at bedside with patient throughout night.
--- NOTE | 2022-08-05 05:27 | PC.NURSE ---
Patient became very restless and agitated at times throughout the night, trying to get out of bed, pulling at simons, and becoming combative with family members. Ativan given x2. Zyprexa given x1. Simons required manual irrigation x3 throughout shift.
[2022-08-05 05:33] LABS: Blood Urea Nitrogen 13 mg/dL (8-23); Calcium 8.2 mg/dL (8.5-10.5); Carbon Dioxide 19 mmol/L (22-29); Chloride 109 mmol/L (98-107); Chol HDL Ratio 3.71 mg/dL (1.0-5.00); Cholesterol 130 mg/dL (0-200); Glucose 92 mg/dL (65-115); HDL Cholesterol 35 mg/dL (60-100); LDL Cholesterol Calculated 74 mg/dL (50-129); LDL HDL Ratio 2.11 RATIO (0.00-3.22); Osmolality Calculated 286 mOsm/kg (285-295); Sodium 138 mmol/L (136-145); Triglycerides 107 mg/dL (0-150)
[2022-08-05 08:04] VITALS: RESP 17; O2SAT 96
[2022-08-05] MEDS: morphine 4 mg/mL SDV 1 mL 2 MG IVP (08:04)
--- NOTE | 2022-08-05 08:45 | PM.PN ---
Subjective Subjective: Family and patient had a difficult night. He had quite a bit of agitation upon awakening. He required quite a few doses of Zyprexa, and had some Ativan as well. MRI ordered for yesterday, for which the patient received some fentanyl and Versed could not be done secondary to agitation and movement. This is being attempted again today. Medications: Reviewed: Yes Vitals/I&O/Wt Last Vital Signs Temp 99.0 F 08/05/22 04:00 Pulse 77 08/05/22 04:00 Resp 17 08/05/22 08:04 BP 103/68 08/05/22 04:00 Pulse Ox 96 08/05/22 08:04 O2 Del Method 08/05/22 04:00 08/04/22 08/05/22 08/05/22 22:59 06:59 14:59 Intake Total 1000 / 2000 737.5 / 2737.5 Output Total 600 / 600 1240 / 1840 Balance 400 / 1400 -502.5 / 897.5 Weight last 48 hrs Weight 76.067 kg Weight 74.525 kg Physical Exam Narrative: General is a confused male, with ataxic limbs. Exam done with Dr. Santana HEENT: Atraumatic and normocephalic. Pupils are round. He was able to answer some questions. Speech quality is about the same as yesterday. Neck is supple no lymphadenopathy thyromegaly Cardiovascular regular rate and rhythm without murmur, no S3 or S4 Lungs clear no wheezing or crackles Abdomen is soft nontender positive bowel sounds. No obvious organomegaly Bello is noted Extremities no cyanosis clubbing or edema, cap refill brisk Skin no rash Neuro: Ataxic, confused, moving all extremities Urinary Catheter Management: Bello: Cath Placed During This Visit: yes Reason for Continuing Indwelling Catheter: Acute Urinary Retention or Obstruction Urinary Catheter Date of Insertion: 08/04/22 Data : 08/05/22 04:35 08/05/22 04:35 A&P Assessment and plan (1) Acute ischemic multifocal posterior circulation stroke: Patient presenting with acute posterior circulations stroke Appreciate neurology consultation Patient kept flat and hydrated initially. Try to mobilize some today if patient cooperative. Initiate Plavix and aspirin when able High intensity statin Therapy consultations Echocardiogram to be done Telemetry Consider outpatient event monitor Currently he will require one-to-one sitter when family is not present. Permissive hypertension, therefore his amlodipine and lisinopril have been held. DVT prophylaxis with Lovenox Have attempted MRI. Currently not successful despite preprocedure sedation with Zyprexa earlier this morning and Ativan and morphine given just prior to procedure. Discussed with neurology. Proceed with noncontrast CT scan. Status: Acute (2) Hypertension: Hold antihypertensives Permissive hypertension in the face of CVA Status: Acute (3) Hypothyroidism: TSH was checked and normal Status: Acute (4) Hyperlipidemia: Changed to high intensity statin Lipitor 80 mg daily Status: Acute Plan Secondary to the need for significant amounts of fluids, difficulty urinating, Bello was placed by urology yesterday. If he becomes more cooperative, and we can mobilize some try to discontinue this within the next 48 hours. 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
[2022-08-05] MEDS: LORazepam 2 mg/mL INJ 1 mL IVP (08:59)
--- NOTE | 2022-08-05 11:35 | PC.SLP ---
MANAGED CARE PROVIDER attempted to assess, however, the pt was sleeping and could not be awakened enough to participate at this time.
--- NOTE | 2022-08-05 12:23 | PC.OT ---
OT EVALUATION ATTEMPTED. PATIENT IS SLEEPING SOUNDLY AND DOES NOT AWAKEN. EVAL TO BE ATTEMPTED AGAIN AT A LATER TIME.
--- NOTE | 2022-08-05 12:28 | PC.CHAP ---
Pastoral Care Encounter/Spiritual Assessment Type of Contact [] Declined social worker delinquency prevention visit [] Patient/Family/Request visit [] Outpatient visit [] Follow-up visit [] Physician referral [] Code/Alert [X] Routine visit [] Staff referral [] Actively dying [] Patient sleeping [] Family support [] [] Out of room [] Palliative care [] [X] Receiving care in room [] Pre-surgical visit [] Trauma [] Long length of stay [] ICU visit [] Other: Relational/Emotional Strength [x] Patient feels connected with others/family/visitors/staff [] Distress [] Loneliness/isolation [] Abandonment Spirituality of Patient [x] Person of Nellie [] Attends Quaker of their Nellie [x] Believes in Prayer [] Reads Bible or Yarsanism materials [] There are Spiritual issues to be addressed Nursing Home Administrator Interventions [x] Prayer [x] Active listening [x] Non-anxious presence [x] Spiritual/emotional support [] Crisis/trauma care [x] Spiritual counseling [] Bereavement support [] Provided bereavement packet [] Provided Bible/devotional materials [] Provided toy/stuffed animal, coloring book to patient or family member [] Provided Communion [] Anointing/Ivel [] Salvation [x] Completed spiritual assessment [] Other: Impact on Illness or Injury [] Angry [] Fearful [x] Anxious [] Often cries [] Exhaustion [] Unable to work [] Unable to attend episcopal [] Unable to walk/stand [] Unable to read [] Unable to drive [] Unable to eat/drink [] Unable to sleep [] Unable to be with family [] Patient intubated [] Other: Summary had a MRI doesn't about the results from doctor has a good attitude will go home Time spent with patient 10 mins
--- NOTE | 2022-08-05 12:30 | CT_ITS ---
WS: [id number] CT HEAD TECHNIQUE: Noncontrast CT of the head obtained from the skullbase to the vertex. CLINICAL INFORMATION: follow up CVA, neurologic change COMPARISON: CT August 04, 2022 DLP: 1900.[address] scans at [facility] use at least one of these dose optimization techniques: automated e xposure control; mA and/or kV adjustment per patient size (includes targeted exams where dose is matc hed to clinical indication); or iterative reconstruction. FINDINGS: No evidence of intracranial hemorrhage. Compared to previous interval development of low-attenuation change in the parasagittal occipital and posterior parasagittal temporal lobes involving the parahipp ocampal gyrus. This appears in a symmetric configuration. This is new compared to August 04, 2022. Additional development of small area of low-attenuation change in the posterior limb RIGHT internal capsule along the RIGHT lateral thalamus. Differential considerations include subacute ischemia versu s PRES. No hydrocephalus. 4th ventricle remains patent. Mild mass effect on the posterior occipital horns. Mi ld mucosal thickening in the ethmoid air cells. CT/CT head wo con* [id number] IMPRESSION: 1. No evidence of intracranial hemorrhage 2. Interval development of low-attenuation change in a symmetric configuration in the parasagittal occipital lobes extending into the posterior temporal lobe s and parahippocampal gyrus suspicious for subacute ischemia versus possibly GA ES. 3. Additional small focus of low-attenuation involving the posterior limb RIGH T internal capsule along the RIGHT lateral thalamus. 4. No hydrocephalus. 5. No other interval changes. Notified Preston Cortez MD at 08/05/2022 1:36 PM. D/W Dr. Santana 08/05/2022 1:37 PM
[2022-08-05 14:06] LABS: Erythrocyte Sedimentation Rate 2 mm/hr (0-10)
[2022-08-05 14:20] LABS: C Reactive Protein 12.7 mg/L (0.0-4.9)
--- NOTE | 2022-08-05 16:13 | PC.PT ---
Dr. Cortez request hold a.m. treatment, charge nurse request hold p.m. treatment due to patient recent have lumbar puncture and is supposed to remain supine. Also sounds like behavior of patient a consideration as well at this time. Will follow
--- NOTE | 2022-08-05 18:10 | PC.SLP ---
Patient is still unable to participate with FACTORY FOCUS TECHNICIAN assessment at this time. FACTORY FOCUS TECHNICIAN will attempt to assess tomorrow.
--- NOTE | 2022-08-05 18:58 | PC.NURSE ---
Pt agitated and restless. This nurse turned volume on tv to a lower volume to decrease stimuli in pts room. Pt's visitor Janie stated, Really? This nurse responded with I would like the patient to rest in a quiet environment with decreased stimuli. The patient was calm and resting , nurse left room. Call light on, nurse answered call light, pt visitor , Janie asked, What is the deal with the tv? This nurse explained the tv volume was decreased to allow the patient to rest, sleep and not be disturbed in a calming environment. The pt's visitor, Janie stated, He sleeps with a tv on at home, you can get a sitter because I'm leaving and I will be reporting you. This nurse let the visitor know we would get the patient a sitter and that would be ok. Pt visitor Janie stated, You don't have to tuck pointer helper here until I leave. Patient resting comfortably in bed, bed alarm on. Charge nurse notified of need for sitter and interaction with visitor. Daughter notified by this nurse via telephone. Daughter also made primary contact in chart.
[2022-08-05] MEDS: enoxaparin 40 mg/0.4 mL Syringe SUBCUT (19:42)
[2022-08-05 22:00] VITALS: PULSE 0
--- NOTE | 2022-08-05 22:42 | PC.NURSE ---
Patients sister Dasha came in to sit with the patient until his room was moved to allow for a sitter.The patient was moved into room 259-1. Patients sister left at this time. Report was given to Ibeth.
[2022-08-05 23:56] VITALS: PULSE 0
[2022-08-06] VITALS (12 sets, daily range): BP systolic 121–148; BP diastolic 73–86; PULSE 63–82; RESP 14–17; TEMP 36.4–36.9; O2SAT 92–95
[2022-08-06] MEDS: sodium chloride 0.9% 1,000 ML 125 ML IV ×2 (00:06→08:51)
[2022-08-06 10:22] LABS: Basophils # 0.1 10^3/uL (0.0-0.1); Basophils % 0.4 %; Eosinophils # 0.3 10^3/uL (0.0-0.8); Eosinophils % 2.8 %; Hematocrit 41.7 % (42.0-52.0); Hemoglobin 13.6 g/dL (11.7-16.6); Lymphocytes # 3.3 10^3/uL (0.8-4.8); Lymphocytes % 29.1 %; Mean Corpuscular HGB Conc 32.6 g/dL (30.0-36.0); Mean Corpuscular Hemoglobin 29.5 pg (28.0-34.0); Mean Corpuscular Volume 90.5 fl (80-94); Mean Platelet Volume 10.8 fL (7.4-10.4); Monocytes # 0.9 10^3/uL (0.2-0.9); Monocytes % 7.9 %; Neutrophils # 6.74 10^3/uL (1.8-7.7); Neutrophils % 59.5 %; Nucleated Red Blood Cells % 0 %; Platelet Count 189 10^3/cmm (130-400); Red Blood Count 4.61 10^6/uL (4.1-5.3); Red Cell Distribution Width 12.8 % (12.1-15.1); White Blood Count 11.3 10^3/uL (4.0-10.0)
[2022-08-06 10:34] LABS: Alanine Aminotransferase 9 U/L (0-41); Albumin Level 3.1 g/dL (3.5-5.2); Alkaline Phosphatase 68 U/L (40-130); Anion Gap 17.7 (5-19); Aspartate Amino Transferase 19 U/L (0-40); Blood Urea Nitrogen 13 mg/dL (8-23); Calcium 8.1 mg/dL (8.5-10.5); Carbon Dioxide 16 mmol/L (22-29); Chloride 106 mmol/L (98-107); Globulin 2.5 g/dL (1.3-4.6); Glucose 64 mg/dL (65-115); Osmolality Calculated 280 mOsm/kg (285-295); Potassium 3.7 mmol/L (3.5-5.1); Sodium 136 mmol/L (136-145); Total Protein 5.6 g/dL (6.6-8.7)
--- NOTE | 2022-08-06 11:07 | P.PN_ITS ---
Subjective Subjective: Sleeping when I entered the room. Alert, and interactive after waking him up. He is more cooperative and calm today. Medications: Reviewed: Yes Vitals/I&O/Wt Last Vital Signs Temp 98.2 F 08/06/22 03:58 Pulse 63 08/06/22 07:52 Resp 15 08/06/22 07:52 BP 121/74 08/06/22 07:52 Pulse Ox 94 08/06/22 07:52 O2 Del Method 08/06/22 07:52 08/05/22 08/06/22 08/06/22 22:59 06:59 14:59 Intake Total 950 / 1950 1000 / 2950 1000 / 1000 Output Total 775 / 775 200 / 200 Balance 950 / 1950 225 / 2175 800 / 800 Weight last 48 hrs Weight 76.067 kg Physical Exam Narrative: General reorients, conversant questions. Speech quality is good Neck is supple no lymphadenopathy thyromegaly Cardiovascular regular rate and rhythm without murmur, no S3 or S4 Lungs clear no wheezing or crackles Abdomen is soft nontender positive bowel sounds. No obvious organomegaly Bello is noted Extremities no cyanosis clubbing or edema, cap refill brisk Neurologic: Visual deficit is present but he can see some things. It is hard to tell what quadrants he can see in. Certainly cannot read at this point. Urinary Catheter Management: Bello: Cath Placed During This Visit: yes Reason for Continuing Indwelling Catheter: Acute Urinary Retention or Obstru ction Urinary Catheter Date of Insertion: 08/04/22 Data : 08/06/22 09:56 08/06/22 09:56 A&P Assessment and plan (1) Acute ischemic multifocal posterior circulation stroke: Patient presenting with acute posterior circulations stroke Appreciate neurology consultation Patient kept flat and hydrated initially. Now he has been mobilized. Initiate Plavix and aspirin when able High intensity statin Therapy consultations Echocardiogram to be done Telemetry at this point has not shown any arrhythmia Consider outpatient event monitor Currently he will require one-to-one sitter when family is not present. Permissive hypertension, therefore his amlodipine and lisinopril have been held. Blood pressure has not been elevated. DVT prophylaxis with Lovenox Have attempted MRI. Patient was unable to lay still initially. Could potentially try again this afternoon. To check for any inflammation neurology attempted lumbar puncture yesterday but this was not successful. CRP, sedimentation rate not significantly elevated. DAMIEN was also performed which is pending. Status: Acute (2) Hypertension: Hold antihypertensives Permissive hypertension in the face of CVA Status: Acute (3) Hypothyroidism: TSH was checked and normal Status: Acute (4) Hyperlipidemia: Changed to high intensity statin Lipitor 80 mg daily Status: Acute Plan Secondary to the need for significant amounts of fluids, difficulty urinating, Bello was placed by urology yesterday. If he becomes more cooperative, and we can mobilize could consider discontinuation prior to discharge Other medical problems as outlined in his past medical history Full code Lovenox for DVT prophylaxis Attestations Medical Necessity Statement*: Needs continued hospitalization for initiation of therapies, completion of work-up for CVA, posterior circulation. Coding Level of Care Code Acute Combining Machine Operator for [place] Diagnoses Acute ischemic multifocal posterior circulation stroke I63.539 Hypertension I10 Hypothyroidism E03.9 Hyperlipidemia E78.5
--- NOTE | 2022-08-06 11:10 | USCV_ITS ---
Lucho Echeverria Age: 72 Gender: M : 1950 Exam Date: 08/06/2022 14:38 Ordering Phys: Preston Cortez MD Technologist: Anil Austin Exam Location: [facility] [place] Indication: CVA BP: 143 / 72 HR: Rhythm: Sinus Technical Quality: Adequate MEASUREMENTS (Male / Female) Normal Values 2D ECHO LV Diastolic Diameter PLAX 3.5 cm 4.2 - 5.9 / 3.9 - 5.3 cm LV Systolic Diameter PLAX 2.0 cm IVS Diastolic Thickness 0.9 cm 0.6 - 1.0 / 0.6 - 0.9 cm IVS Systolic Thickness 1.5 cm LVPW Diastolic Thickness 1.4 cm 0.6 - 1.0 / 0.6 - 0.9 cm LVPW Systolic Thickness 1.2 cm LVOT Diameter 2.1 cm LV Ejection Fraction 2D Teich 74.1 % LV Ejection Fraction MOD 2C 58.3 % LV Ejection Fraction 2C AL 58.8 % LA Diameter 3.8 cm Aorta at Sinotubular Diameter 2.7 cm M-MODE Aortic Annulus Diameter 3.6 cm LA Ao Ratio MM 1.2 MV E Point Septal Separation 1.0 cm DOPPLER AV Peak Velocity 129.0 cm/s LVOT Peak Velocity 105.0 cm/s AV Area Cont Eq vti 4.1 cm squared AV Area Cont Eq pk 2.8 cm squared MV Area PHT 5.0 cm squared Mitral E to A Ratio 0.9 MV E' Velocity 48.0 cm/s Mitral E to MV E' Ratio 11.3 Mitral E to LV E' Lateral Ratio 12.5 Mitral E to LV E' Septal Ratio 10.2 TR Peak Velocity 173.3 cm/s TR Peak Gradient 12.0 mmHg Right Atrial Pressure 3.0 mmHg Pulmonary Artery Systolic Pressu 15.0 mmHg RV Acceleration Time 0.1 s FINDINGS Left Ventricle Normal left ventricular size and systolic function, EF 70 %. No regional wall motion abnormalities. Grade I/IV diastolic dysfunction (abnormal relaxation filling pattern), normal to mildly elevated filling pressures. Right Ventricle The right ventricle is normal in size and function. Right Atrium The right atrium is normal in size. Left Atrium The left atrium is normal in size. Mitral Valve No gross abnormalities noted Aortic Valve Thickened aortic valve. Tricuspid Valve Trace tricuspid valve regurgitation. Pulmonic Valve Pulmonic valve not well visualized. Pericardium Normal pericardium without effusion. Aorta Normal aortic annulus size. IVC Inferior vena cava not visualized. CONCLUSIONS Normal left ventricular size and systolic function, EF 70 %. No regional wall motion abnormalities. Grade I/IV diastolic dysfunction (abnormal relaxation filling pattern), normal to mildly elevated filling pressures. Trace tricuspid valve regurgitation. Thickened aortic valve. There is no pericardial effusion. There are no intracardiac masses. No previous study is available for comparison. Dr Jen Francois MD FACC (Electronically Signed) Final Date: 06 August 2022 21:02 S
[2022-08-06] MEDS: dextrose 5%-sod chloride 0.45% 1,000 ML 100 ML IV (11:43)
--- NOTE | 2022-08-06 13:59 | MR_ITS ---
WS: [id number] MRA ANGIOGRAPHY [place]K OF QUICK HISTORY: CVA, blindness, possible posterior circulation CVA COMPARISON: None available. TECHNIQUE: 3-D MR angiography is performed of the [place] of [place]. All images are reviewed including source images. Motion artifact causing some limitations. Very limited evaluation of the intracranial arteries due to motion. Patient can't moving out of the field for imaging Distal carotid arteries are not well visualized. Middle cerebral arteries and the anterior cerebral a rteries are patent. Small areas of stenosis or thrombus would easily be obscured. Truncated RIGHT P1 segment of the posterior cerebral artery. This could be due to motion. Small caliber RIGHT P2 segment . Similar finding on the CT angiogram of the head. This may be a normal variant. LEFT posterior cereb ral arteries patent. Posterior communicating arteries are both patent but poorly visualized. This study does not include the vertebral arteries due to motion. MR/MR angio head wo con [id number] IMPRESSION: 1. Very limited evaluation of the cerebral arteries due to patient motion duri ng the examination. 2. Small and truncated RIGHT posterior cerebral artery. This may be normal chen iant for this patient or in part due to motion. No thrombus is identified. May be narrowed due to spasm.
--- NOTE | 2022-08-06 13:59 | MR_ITS ---
WS: [id number] MRI BRAIN WITHOUT CONTRAST HISTORY: CVA, blindness, possible post circulation CVA COMPARISON: Head CT 08/05/2022 TECHNIQUE: Diffusion imaging, multiplanar T1, T2 and FLAIR imaging obtained. Acute diffusion-weighted abnormalities are nearly symmetric involving the parasagittal occipital lobe s extending into the medial, posterior temporal lobes. The restricted areas are of low signal on the ADC map. Smaller focal area of restricted diffusion extends into the posterior limb of the RIGHT inte rnal capsule and RIGHT thalamus. Majority of these restricted areas correspond to acute changes noted on the recent CT of low attenuation. There is no hemorrhage. There is some motion artifact limiting evaluation for flow artifacts in the arteries. No midline shift. Ventricles are normal size. No infer ior displacement of cerebellar tonsils. No brainstem abnormalities. Dural venous sinuses and [place] demonstrate no abnormality on this unenhanced studies. Limi cristy by motion artifact. Paranasal sinuses: Clear. Mastoid air cells: Normal. Calvarium and scalp: Intact. MR/MR head wo con* [id number] IMPRESSION: 1. Quality is compromised by motion artifact. 2. Symmetric restricted diffusion in the parasagittal occipital lobes extendin g into the posterior medial temporal lobes and RIGHT internal capsule and thala mus. These findings are most consistent with PRES. Diffusion-weighted changes i ndicate an underlying component of ischemia. No hemorrhage. 3. No mass effect or midline shift.
--- NOTE | 2022-08-06 15:17 | PM.CONSULT ---
Providers/Reason For Consult Consulting Physician/Specialty*: Dr. Cortez Reason for Consult*: Progressive neurologic deficit Requesting Physician: Dr. Preston Cortez Attending Physician: Preston Cortez MD History of Present Illness History of Present Illness This consult is from 08/05/2022 dictated the following day I was called to see this 72-year-old man in the emergency department for subacute onset of visual loss. I was called for stroke team but the patient's symptoms were present on waking yesterday morning the and he had had transient left-sided visual symptoms the day before (08/03/2022) and was seen in the ED with no neurologic deficit at that time. On my examination 08/04/2022 the patient had ataxia in all 4 extremities and dense left homonymous hemianopsia. He definitely had intact visual gore on the right. He would have been a candidate for thrombectomy so CT angiogram was done emergently and I reviewed his CTA, which showed robust basilar artery, tortuous but intact bilateral posterior cerebral arteries. The right vertebral artery was dominant while the left was small and Dr. Hinkle was concerned that there could be a dissection or he could not rule it out. I reviewed those images with him again today. By the time that Dr Cortez admitted this patient on 08/04, Mr. 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 He was confused. Because it was posterior circulation, it was best to place the patient on high flow saline and in order to accomplish that he needed to have a Bello catheter because he has urinary outflow obstruction. The patient became severely agitated when the Bello was placed. Dr. Orta had to be consulted in order to get access to the bladder. The patient has remained agitated. He has no sign that he can see. He has not been febrile. His blood pressure has not been elevated and in fact its been a little bit low so that his antihypertensives are being held. Review of Systems General: Reports: Other (From the family) Narrative: He has not been ill. He has a history of hypertension. He was in the ED 08/03/2022 saying he could not see out of his left eye but it was already better. He felt like there was something in his left eye and so fluorescein evaluation was done to rule out a corneal lesion. The patient himself thought that flushing the left eye helped. He was not complaining of a headache. He has not complained of a headache of late and has not been ill. No history of heart disease. Const: Reports: other (Dr. Cortez's review of systems also reviewed) Medications/Allergies Home Medications Medication Instructions Recorded Confirmed Last Taken Type amlodipine 5 mg tablet 5 mg PO DAILY 08/04/22 08/04/22 Unknown History levothyroxine 100 mcg tablet 100 mcg PO DAILY 08/04/22 08/04/22 Unknown History (Euthyrox) lisinopril 20 mg tablet 20 mg PO DAILY 08/04/22 08/04/22 Unknown History simvastatin 10 mg tablet 10 mg PO BEDTIME 08/04/22 08/04/22 Unknown History Allergies Allergy/AdvReac Type Severity Reaction Status Date / Time No Known Allergies Allergy Verified 08/03/22 17:06 Current Medications Generic Name Dose Route Start Last Admin Trade Name Freq PRN Reason Stop Dose Admin Aspirin 325 mg 08/05/22 09:00 08/06/22 07:48 Aspirin 325 Mg Tablet PO Not Given DAILY QUENTIN Atorvastatin Calcium 80 mg 08/04/22 21:00 08/05/22 20:59 Atorvastatin 40 Mg Tablet PO Not Given BEDTIME QUENTIN Clopidogrel Bisulfate 75 mg 08/05/22 09:00 08/06/22 07:47 Clopidogrel 75 Mg Tablet PO Not Given DAILY QUENTIN Enoxaparin Sodium 40 mg 08/04/22 20:00 08/05/22 19:42 Enoxaparin 40 Mg/0.4 Ml Syringe SUBCUT 40 mg Q24H QUENTIN Administration Dextrose/Sodium Chloride 1,000 mls @ 100 mls/hr 08/06/22 11:15 08/06/22 11:43 Dextrose 5%-Sod Chloride 0.45% IV 100 mls/hr .Q10H QUENTIN Administration Levothyroxine Sodium 100 mcg 08/05/22 09:00 08/06/22 07:47 Levothyroxine 100 Mcg Tablet PO Not Given DAILY QUENTIN Tamsulosin HCl 0.4 mg 08/04/22 20:00 08/06/22 07:47 Tamsulosin 0.4 Mg Capsule PO Not Given DAILY QUENTIN PFSH Acute PFSH: Medical History BPH (benign prostatic hyperplasia) Hyperlipidemia Hypertension Hypothyroidism Surgical History History of exploratory laparotomy Secondary to bowel obstruction, adhesions found Family History Other Hypertension Stroke Social History Smoking and tobacco status: current every day smoker smokeless tobacco Smokeless tobacco user: chewing tobacco Alcohol intake: never Vitals/I&O/Wt Last Vital Signs Temp 97.8 F 08/06/22 11:59 Pulse 82 08/06/22 11:59 Resp 15 08/06/22 11:59 BP 122/81 08/06/22 11:59 Pulse Ox 93 08/06/22 11:59 O2 Del Method 08/06/22 11:59 08/06/22 08/06/22 08/06/22 06:59 14:59 22:59 Intake Total 1000 / 2950 1735.417 / 1735.417 Output Total 775 / 775 1200 / 1200 Balance 225 / 2175 535.417 / 535.417 Weight last 48 hrs Weight 167 lb 11.2 oz Physical Exam Narrative: General: Healthy appearing man who looks younger than his age. Mental status exam: He was sleepy but arousable. He could speak in complete sentences and tell me to leave him alone. He was agitated. He would not cooperate. Over the more than an hour that I spent with the patient he was eventually able to stand up at the bedside. His main concern was the urge to urinate. Cranial nerves: At 1 point I peeled the patient's eyes open, held up 2 fingers and when I said how many fingers his eyes were closed but he said two. This was not a reliable measure. He did not make eye contact. He keeps his eyes tightly closed and resists eye opening. Pupils reactive. Facial movements symmetric. Motor: It is difficult to determine but he does not seem is ataxic today. He was quite strong and pinched the hospitalist vigorously. He was moving all 4 extremities with excellent strength. He was able to stand at the bedside but he had significant midline instability. Sensory: He withdrew from touch in all 4 extremities. Toes were upgoing. HEENT: Normocephalic. Conjunctiva not injected. Neck: He resists all movements of any type Chest: Clear to auscultation Cardiovascular: S1 and S2 normal without murmur or gallop. Regular rate and rhythm Extremities: No deformities. CT scan of the head shows bilateral occipital infarct with lucency throughout the calcarine cortex consistent with posterior cerebral artery territory. Involvement of the right posterior temporal lobe and subcortical region also noted but no thalamic involvement. We attempted to get MRI but the patient was too agitated despite multiple sedatives. Urinary Catheter Management: Bello: Cath Placed During This Visit: yes Reason for Continuing Indwelling Catheter: Acute Urinary Retention or Obstruction Urinary Catheter Date of Insertion: 08/04/22 Data : 08/06/22 09:56 08/06/22 09:56 A&P Assessment and plan (1) Acute ischemic multifocal posterior circulation stroke: Bilateral posterior cerebral artery infarction. The patient is severely agitated which is not at all uncommon with posterior circulation ischemia because of temporal lobe involvement and cortical blindness. He does not appear to be hallucinating. Plan: Because this was a somewhat atypical presentation with no visible clot or source of clot with posterior circulation stroke and minor concern for vasculitis (CTA did not suggest vasculitis) I attempted to obtain spinal fluid. Dr. Cortez assisted in the procedure by holding the patient in a decubitus position and we then shifted him to a sitting position hoping that he would be more comfortable but the patient was vigorous in his movements and I was unable to obtain entrance to the subarachnoid space despite multiple attempts and the procedure was aborted. There is a small chance this could be posterior reversible encephalopathy (PRES) but at no time was his blood pressure elevated (even when he was in the ER the day before it was 127/70) and he is not on any cytotoxic medications. Also the pattern of ischemia by CAT scan is not white matter but more cortical consistent with ischemic cause rather than reversible encephalopathy. MRI would be helpful to distinguish this disorder but not necessarily diagnostic and there is no difference in treatment. Plan to continue work-up and compassionate treatment of the patient's encephalopathy. I came to the unit and visited with the family after reviewing the patient's exam. Dr. Cortez and I talked with the family together and they agreed to repeating the CAT scan since we were unable to obtain an MRI. That was done and I reviewed those images with Dr. Hinkle before returning to the unit and talking with Dr. Cortez and then with the family. I then attempted lumbar puncture without success and we visited with the family again before I left the unit. Status: Acute (2) Acute urinary retention: Status: Acute Consult Attestations Medical Necessity Statement: Acute bilateral stroke Coding Level of Care Code Acute Immigration Consultant for [place] Diagnoses Acute ischemic multifocal posterior circulation stroke I63.539 Acute urinary retention R33.8 Time Spent (min) 90
[2022-08-06] MEDS: enoxaparin 40 mg/0.4 mL Syringe SUBCUT (20:50)
[2022-08-06] MEDS: atorvastatin 40 mg Tablet 80 MG PO (20:50)
[2022-08-06 22:26] LABS: Glucose Point of Care 99 mg/dL (70-110)
[2022-08-07 04:00] VITALS: BP 119/76; PULSE 59; RESP 16; TEMP 36.7; O2SAT 93
[2022-08-07 04:01] LABS: Basophils # 0.1 10^3/uL (0.0-0.1); Basophils % 0.5 %; Eosinophils # 0.4 10^3/uL (0.0-0.8); Eosinophils % 3.7 %; Hematocrit 40.3 % (42.0-52.0); Hemoglobin 13.7 g/dL (11.7-16.6); Lymphocytes # 3.4 10^3/uL (0.8-4.8); Lymphocytes % 32.7 %; Mean Corpuscular Hemoglobin 29.3 pg (28.0-34.0); Mean Corpuscular Volume 86.3 fl (80-94); Mean Platelet Volume 11.1 fL (7.4-10.4); Monocytes # 0.8 10^3/uL (0.2-0.9); Monocytes % 7.9 %; Neutrophils # 5.75 10^3/uL (1.8-7.7); Neutrophils % 54.8 %; Nucleated Red Blood Cells % 0 %; Platelet Count 206 10^3/cmm (130-400); Red Blood Count 4.67 10^6/uL (4.1-5.3); Red Cell Distribution Width 12.7 % (12.1-15.1); White Blood Count 10.5 10^3/uL (4.0-10.0)
[2022-08-07] MEDS: dextrose 5%-sod chloride 0.45% 1,000 ML 100 ML IV (04:14)
[2022-08-07 04:24] LABS: Alanine Aminotransferase 10 U/L (0-41); Albumin Level 3.5 g/dL (3.5-5.2); Alkaline Phosphatase 72 U/L (40-130); Anion Gap 13.8 (5-19); Aspartate Amino Transferase 22 U/L (0-40); Blood Urea Nitrogen 15 mg/dL (8-23); Calcium 8.7 mg/dL (8.5-10.5); Carbon Dioxide 21 mmol/L (22-29); Chloride 108 mmol/L (98-107); Globulin 2.5 g/dL (1.3-4.6); Glucose 101 mg/dL (65-115); Osmolality Calculated 289 mOsm/kg (285-295); Potassium 3.8 mmol/L (3.5-5.1); Sodium 139 mmol/L (136-145); Total Bilirubin 1.3 mg/dL (0.15-1.2)
[2022-08-07 06:51] LABS: Glucose Point of Care 111 mg/dL (70-110)
[2022-08-07 08:00] VITALS: BP 124/74; PULSE 65; RESP 15; TEMP 36.7; O2SAT 93
--- NOTE | 2022-08-07 08:53 | PC.SOCIAL ---
IMM update Imm updated with patient at bedside. Copy of page 2 provided. Patient verbalized understanding. Copy in chart initialed, dated and timed.
[2022-08-07] MEDS: clopidogrel 75 mg Tablet PO (08:57)
[2022-08-07] MEDS: tamsulosin 0.4 mg Capsule PO (08:57)
[2022-08-07] MEDS: levothyroxine 100 mcg Tablet PO (08:57)
[2022-08-07] MEDS: aspirin 325 mg Tablet PO (08:58)
[2022-08-07 09:42] LABS: Erythrocyte Sedimentation Rate 13 mm/hr (0-10)
[2022-08-07 09:47] LABS: C Reactive Protein 48.7 mg/L (0.0-4.9)
--- NOTE | 2022-08-07 10:59 | PC.NURSE ---
1015 Janie, Pts girlfriend is at bedside.
--- NOTE | 2022-08-07 11:05 | PM.PN ---
Subjective Subjective: I have requested ESR and CRP Patient has tunnel vision This morning his mood was better as compared to the nursing staff He did cooperate with me answer questions appropriately He was able to tell me his name, date of name of his girlfriend tank refinisher He is tolerating his diet without any active aspiration or choking Afebrile Normotensive Girlfriend was not present at the bedside at the time of my evaluation Consultation note reviewed head MRI/MRA reports reviewed Echo reviewed Vitals/I&O/Wt Last Vital Signs Temp 98.0 F 08/07/22 08:00 Pulse 65 08/07/22 08:00 Resp 15 08/07/22 08:00 BP 124/74 08/07/22 08:00 Pulse Ox 93 08/07/22 08:00 O2 Del Method 08/07/22 08:00 08/06/22 08/07/22 08/07/22 22:59 06:59 14:59 Intake Total 1240 / 2975.417 200 / 3175.417 480 / 480 Output Total 750 / 1950 650 / 2600 300 / 300 Balance 490 / 1025.417 -450 / 575.417 180 / 180 Physical Exam Narrative: Patient is awake and alert He has pronator drift of left arm Tunnel vision No peripheral vision at all Awake and alert Pleasant during my evaluation Looks slightly dehydrated Currently on dysphagia diet Abdomen soft Dorsum to no edema No weakness of lower extremity noted Gait was not tested Urinary Catheter Management: Bello: Cath Placed During This Visit: yes Reason for Continuing Indwelling Catheter: Acute Urinary Retention or Obstruction Urinary Catheter Date of Insertion: 08/04/22 Data : 08/07/22 03:30 08/07/22 03:30 A&P Assessment and plan (1) Tunnel vision: (2) Acute ischemic multifocal posterior circulation stroke: (3) Hyperlipidemia: (4) Hypothyroidism: (5) BPH loc w urin obs/LUTS: Plan Acute posterior circulation stroke Patient has tunnel vision Echo is unremarkable Had MRI report reviewed, his posterior circulation changes unlikely related to CVA instead of press syndrome Patient is afebrile, Mentation has improved Still on one-to-one supervision which we might discontinue if he stays stable DAMIEN studies are pending ESR and CRP not significantly elevated Vasculitis to be ruled out Will need event monitor at the time of discharge Continue dual antiplatelet therapy along high-dose statins Continue PT/OT ST Permissive hypertension BPH: We will plan to discontinue Bello catheter and do voiding trial before discharge Full code I will touch base with his significant other DVT prophylaxis is covered with Lovenox Dr. Albarado did update me about the progress today Attestations Medical Necessity Statement*: Continue hospitalization Time Spent in Patient Care: 40 Coding Level of Care Code Acute Continuous Process Rotary Drum Tanner for Chg Fwd Diagnoses Tunnel vision H53.489 Acute ischemic multifocal posterior circulation stroke I63.539 Hyperlipidemia E78.5 Hypothyroidism E03.9 BPH loc w urin obs/LUTS N40.1
[2022-08-07 12:00] VITALS: BP 129/78; PULSE 67; RESP 16; TEMP 36.4; O2SAT 95
--- NOTE | 2022-08-07 12:10 | PM.PN ---
Subjective Subjective: I met with the patient and his family yesterday and again today. Yesterday he still had a dense left homonymous hemianopsia but his vision had completely cleared on the right. He was still moderately confused but more alert. Today he still has left homonymous hemianopsia but he has regained macular vision in the left upper quadrant. He is not complaining of back pain. He still ataxic and wobbles from side to side when he is sitting up. The family is thinking about where he goes next. His daughter lives in [place] and we have discussed neuro rehab. Blood pressure 124/74. He was able to sit through a rapid MRI with MRA. Dr. 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 His MR angio shows cut off of the right posterior cerebral artery which was robust on his CTA 08/04. There were no signs of vasculitis. Vitals/I&O/Wt Last Vital Signs Temp 98.0 F 08/07/22 08:00 Pulse 65 08/07/22 08:00 Resp 15 08/07/22 08:00 BP 124/74 08/07/22 08:00 Pulse Ox 93 08/07/22 08:00 O2 Del Method 08/07/22 08:00 08/06/22 08/07/22 08/07/22 22:59 06:59 14:59 Intake Total 1240 / 2975.417 200 / 3175.417 480 / 480 Output Total 750 / 1950 650 / 2600 300 / 300 Balance 490 / 1025.417 -450 / 575.417 180 / 180 Physical Exam Narrative: He is alert and pleasant. He follows commands without difficulty. He has truncal titubation when sitting up. He has a dense left homonymous hemianopsia sparing the macula of the left upper quadrant. The left lower quadrant still includes the midline. He has drift of the left arm. He has ataxia in both upper extremities. Gait not tested. He walked earlier with physical therapy. He is still in sinus rhythm. Urinary Catheter Management: Bello: Cath Placed During This Visit: yes Reason for Continuing Indwelling Catheter: Acute Urinary Retention or Obstruction Urinary Catheter Date of Insertion: 08/04/22 Data : 08/07/22 03:30 08/07/22 03:30 A&P Assessment and plan (1) Acute ischemic multifocal posterior circulation stroke: Acute right posterior cerebral artery and bilateral posterior cerebral artery strokes with atypical features including the lack of thrombus in the left posterior cerebral artery now with cutoff of the right posterior cerebral artery that was not present on CTA. Radiologist thinks that the MRI findings are consistent with press which has been a concern from the start because of the atypical features of this patient. He did not have hypertension at any time including the day before this event and has not had hypertension since arrival. He is not on any drugs that would lead to pres. It will remain to watch his clinical course. His prognosis is much better. He still may need extended neuro rehab. Will discuss with his daughter. Discussed with his fianc?e who is in favor of taking him home. Attestations Medical Necessity Statement*: Patient with atypical bilateral posterior circulation ischemia. Coding Level of Care Code Acute Applications Programmer for Lonnie [place] Diagnoses Acute ischemic multifocal posterior circulation stroke I63.539 Time Spent (min) 45 Comment Patient seen yesterday and today and time spent in reviewing images and discussing with fa
[2022-08-07 15:35] VITALS: BP 131/69; PULSE 62; RESP 18; TEMP 36.8; O2SAT 95
--- NOTE | 2022-08-07 19:01 | PC.NURSE ---
Stroke book. I placed stoke booklet, smoker brochure and discharge file at bedside. I explained to family (sister) at bedside what it was for.
[2022-08-07 19:56] VITALS: BP 114/73; PULSE 64; RESP 16; TEMP 36.9; O2SAT 91
[2022-08-07] MEDS: enoxaparin 40 mg/0.4 mL Syringe SUBCUT (20:15)
[2022-08-07] MEDS: atorvastatin 40 mg Tablet 80 MG PO (20:15)
[2022-08-08 00:47] VITALS: BP 107/66; PULSE 58; RESP 16; TEMP 36.9; O2SAT 94
[2022-08-08 03:52] LABS: Basophils # 0.1 10^3/uL (0.0-0.1); Basophils % 0.5 %; Eosinophils # 0.4 10^3/uL (0.0-0.8); Eosinophils % 4.2 %; Hematocrit 40.1 % (42.0-52.0); Lymphocytes # 3.7 10^3/uL (0.8-4.8); Lymphocytes % 36.4 %; Mean Corpuscular HGB Conc 34.9 g/dL (30.0-36.0); Mean Corpuscular Volume 85.9 fl (80-94); Mean Platelet Volume 11.1 fL (7.4-10.4); Monocytes # 0.8 10^3/uL (0.2-0.9); Neutrophils # 5.11 10^3/uL (1.8-7.7); Neutrophils % 50.6 %; Nucleated Red Blood Cells % 0 %; Platelet Count 209 10^3/cmm (130-400); Red Blood Count 4.67 10^6/uL (4.1-5.3); Red Cell Distribution Width 12.8 % (12.1-15.1); White Blood Count 10.1 10^3/uL (4.0-10.0)
[2022-08-08 04:00] VITALS: BP 118/76; PULSE 53; RESP 15; TEMP 37; O2SAT 96
[2022-08-08 04:18] LABS: Anion Gap 12.8 (5-19); Blood Urea Nitrogen 14 mg/dL (8-23); Calcium 8.8 mg/dL (8.5-10.5); Carbon Dioxide 23 mmol/L (22-29); Chloride 112 mmol/L (98-107); Glucose 103 mg/dL (65-115); Osmolality Calculated 299 mOsm/kg (285-295); Potassium 3.8 mmol/L (3.5-5.1); Sodium 144 mmol/L (136-145)
[2022-08-08 07:19] VITALS: BP 115/57; PULSE 61; RESP 20; TEMP 36.9; O2SAT 97
[2022-08-08] MEDS: clopidogrel 75 mg Tablet PO (08:41)
[2022-08-08] MEDS: levothyroxine 100 mcg Tablet PO (08:41)
[2022-08-08] MEDS: aspirin 325 mg Tablet PO (08:41)
[2022-08-08] MEDS: tamsulosin 0.4 mg Capsule PO (08:42)
--- NOTE | 2022-08-08 09:39 | PM.PN ---
Subjective Subjective: Patient was sleeping when entered room He is verbally redirectable Pleasant and cooperative Still has weakness of his left arm however able to hold in the air for about 5 seconds Mild drift noted Looks euvolemic One-to-one supervision has been discontinued Vitals/I&O/Wt Last Vital Signs Temp 98.4 F 08/08/22 07:19 Pulse 61 08/08/22 07:19 Resp 20 H 08/08/22 07:19 BP 115/57 08/08/22 07:19 Pulse Ox 97 08/08/22 07:19 O2 Del Method 08/08/22 04:00 08/07/22 08/08/22 08/08/22 22:59 06:59 14:59 Intake Total 240 / 1802 Output Total 1000 / 1300 450 / 1750 Balance -760 / 502 -450 / 52 Physical Exam Narrative: Left-sided neglect Left arm dressed history of present Able to ambulate with help of data analysis assistant with PT Awake and alert No worsening of neurological symptoms Looks euvolemic S1, S2 Abdomen soft Currently on room air Urinary Catheter Management: Bello: Cath Placed During This Visit: yes Reason for Continuing Indwelling Catheter: Other Urinary Catheter Date of Insertion: 08/04/22 Data : 08/08/22 03:28 08/08/22 03:28 A&P Assessment and plan (1) Tunnel vision: (2) Blurred vision, left eye: (3) Acute ischemic multifocal posterior circulation stroke: (4) Hyperlipidemia: (5) Hypothyroidism: (6) Acute urinary retention: (7) Difficult Bello catheter placement: (8) BPH loc w urin obs/LUTS: Plan Acute posterior circulation stroke I do not appreciate any worsening of symptoms in fact he seems to be stable since yesterday DAMIEN Screening is pending Multiple family meetings conducted We have sent multiple referrals to the nursing homes Patient was seen multiple times yesterday along Dr. Santana Continue dual antiplatelet therapy and high-dose statins Stays in sinus rhythm no signs of vasculitis ESR CRP not significantly high No active cardiac Continue PT for evaluation of daily basis, speech therapy recommended regular consistency of diet I have recommended cardiac Full code Continue DVT prophylaxis with Lovenox Continue Zyprexa Mood has stabilized, Plan for detention placement Attestations Medical Necessity Statement*: retirement placement Time Spent in Patient Care: 40 Coding Level of Care Code Acute Elementary Instructional Coach for Chg Fwd Diagnoses Tunnel vision H53.489 Blurred vision, left eye H53.8 Acute ischemic multifocal posterior circulation stroke I63.539 Hyperlipidemia E78.5 Hypothyroidism E03.9 Acute urinary retention R33.8 Difficult Bello catheter placement T83.9XXA BPH loc w urin obs/LUTS N40.1
[2022-08-08 11:30] VITALS: BP 119/60; PULSE 68; RESP 18; TEMP 36.8; O2SAT 98
[2022-08-08] MEDS: potassium chloride ER 20 mEq Tablet 40 MEQ PO (11:55)
[2022-08-08 15:11] VITALS: BP 115/73; PULSE 72; RESP 18; TEMP 36.7; O2SAT 97
[2022-08-08] MEDS: enoxaparin 40 mg/0.4 mL Syringe SUBCUT (20:04)
[2022-08-08] MEDS: atorvastatin 40 mg Tablet 80 MG PO (20:04)
[2022-08-08 20:55] VITALS: BP 124/78; PULSE 72; RESP 14; TEMP 37.1; O2SAT 95
[2022-08-09] VITALS (12 sets, daily range): BP systolic 101–132; BP diastolic 64–81; PULSE 51–69; RESP 16; TEMP 36.3–37.1; O2SAT 95–98
[2022-08-09 05:54] LABS: Anion Gap 14.1 (5-19); Blood Urea Nitrogen 12 mg/dL (8-23); Calcium 8.8 mg/dL (8.5-10.5); Carbon Dioxide 22 mmol/L (22-29); Chloride 108 mmol/L (98-107); Glucose 98 mg/dL (65-115); Osmolality Calculated 290 mOsm/kg (285-295); Potassium 4.1 mmol/L (3.5-5.1); Sodium 140 mmol/L (136-145)
[2022-08-09] MEDS: aspirin 325 mg Tablet PO (09:57)
[2022-08-09] MEDS: levothyroxine 100 mcg Tablet PO (09:57)
[2022-08-09] MEDS: tamsulosin 0.4 mg Capsule PO (09:57)
[2022-08-09] MEDS: clopidogrel 75 mg Tablet PO (09:57)
--- NOTE | 2022-08-09 11:19 | PM.DCS ---
Discharge Providers Date of Admission: 08/04/22 18:37 Date of Discharge: August 09, 2022 Attending Provider at Admission: Preston Cortez MD Attending Provider at Discharge: Chary Hahn MD Diagnoses at Discharge Discharge Diagnosis (1) Tunnel vision: Status: Acute (2) Blurred vision, left eye: Status: Acute (3) Acute ischemic multifocal posterior circulation stroke: Status: Acute (4) Hyperlipidemia: Status: Acute (5) Hypothyroidism: Status: Acute (6) Acute urinary retention: Status: Acute (7) Difficult Bello catheter placement: Status: Acute (8) BPH loc w urin obs/LUTS: Status: Acute Reason for Visit Reason for Visit: STROKE Hospital Course Hospital Course Please see detailed note from neurology and Dr. Cortez. Patient has been managed for posterior circulation stroke during his stay in the hospital. In brief patient presented to the hospital for subacute onset of visual loss. He was seen in the ER for possible stroke however it was seemed less likely because his symptoms resolved by the time he was seen in the ER however at home his brother noticed that he was confused at that time EMS was dispatched, on second visit he had left-sided hemiparesis with left-sided visual loss CT angiogram of head and neck showed left vertebral artery poor visualization however he was deemed not a good candidate for tPA or thrombectomy. He was managed by Dr. Cortez throughout the week I took over his care over the weekend. His girlfriend and the family both agreed that he needs short-term rehab to gain some strength back. He has been accepted at [facility]. Please note there are some tough social/family dynamics between the girlfriend and the rest of the family. Mr. Echeverria stating that he would live with his girlfriend and becomes very agitated when we had a long conversation on Tuesday regarding longterm placement. Eventually he agreed to go to a longterm. There is some improvement of left-sided arm weakness, he did very well with PT. He is tolerating his diet he is actually on regular diet. He did well over the weekend his mood and behavior improved as well. He does have peripheral vision loss. Left greater than right. No signs of vasculitis or temporal arteritis ESR CRP not remarkably high. 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 However his vitals remained pretty stable there were no signs of hypertensive emergency or hypotension. At the time of discharge I will discontinue his amlodipine and lisinopril his blood pressure has been in 120s systolic. I will give him aspirin, Plavix high-dose statins and Flomax. Please note Bello catheter was placed by Dr. Orta because it was a very difficult. We will do voiding trial before we send him to the [facility]. Tamsulosin 0.8 mg daily I will also put him on event monitor. Throughout his hospitalization he has remained in sinus rhythm Echo unremarkable. No signs of vasculitis, DAMIEN level is pending protein C protein S activity pending. Physical Exam Narrative: Patient has peripheral vision loss Left-sided arm weakness has improved to some extent He is able to keep his arm in the air against gravity for more than 5 seconds Able to work with PT Tolerating diet S1, S2 Abdomen soft Currently on room air Pleasant and cooperative during my evaluation Short attention span Does have poor insight to his medical condition Urinary Catheter Management: Bello: Cath Placed During This Visit: yes Reason for Continuing Indwelling Catheter: Other Urinary Catheter Date of Insertion: 08/04/22 Discharge Data Studies Completed and Pending Completed Studies During Hospitalization Category Date Time Status CT angio headneck* [id number]/[id number] Stat Cat Scan 08/04/22 08:[address] head wo con* [id number] Stat Cat Scan 08/04/22 08:[address] head wo con* [id number] Stat Cat Scan 08/05/22 12:30 Completed XR chest 1V portable [id number] Stat Exams 08/04/22 10:48 Completed MR angio head wo con [id number] Stat MRI 08/06/22 13:59 Completed MR head wo con* [id number] Stat MRI 08/06/22 13:59 Completed CV. echo complete* [id number] Routine Ultrasound 08/06/22 11:10 Completed Pending at discharge Category Date Time Status DAMIEN Screen w/ Reflex Routine Lab 08/05/22 14:25 Received Antithrombin III Activity Routine Lab 08/05/22 14:25 Received COVID [SARS Covid-2 Antigen] Routine Lab 08/09/22 11:04 Uncollected PROTEIN C, ACTIVITY Routine Lab 08/05/22 14:25 Received PROTEIN S, ACTIVITY Routine Lab 08/05/22 14:25 Received Radiology Impressions Head/Neck CTA 08/04/22 08:42 IMPRESSION: 1. No significant ICA stenosis bilaterally. Both ICAs are patent to the skull base. 2. No significant flow-limiting intracranial stenosis. Normal vascularity to the JAK and MCA territories bilaterally. 3. RIGHT dominant vertebral artery. Poor intermittent flow in the smaller LEFT vertebral artery with no significant calcified plaque may be due to dissection. Severe stenosis at the LEFT vertebral origin. LEFT vertebral artery reconstitutes distally. 4. Normal flow in the basilar artery and FARM EQUIPMENT MECHANIC APPRENTICE territory bilaterally. 5. No other suspicious findings. Notified Elvin Lynn DO at 08/04/2022 9:18 AM. Chest X-Ray 08/04/22 10:48 IMPRESSION: No acute cardiopulmonary process. Head CT 08/05/22 12:30 IMPRESSION: 1. No evidence of intracranial hemorrhage 2. Interval development of low-attenuation change in a symmetric configuration in the parasagittal occipital lobes extending into the posterior temporal lobes and parahippocampal gyrus suspicious for subacute ischemia versus possibly PRES. 3. Additional small focus of low-attenuation involving the posterior limb RIGHT internal capsule along the RIGHT lateral thalamus. 4. No hydrocephalus. 5. No other interval changes. Notified Preston Cortez MD at 08/05/2022 1:36 PM. D/W Dr. Santana 08/05/2022 1:37 PM Head MRI 08/06/22 13:59 IMPRESSION: 1. Quality is compromised by motion artifact. 2. Symmetric restricted diffusion in the parasagittal occipital lobes extending into the posterior medial temporal lobes and RIGHT internal capsule and thalamus. These findings are most consistent with PRES. Diffusion-weighted changes indicate an underlying component of ischemia. No hemorrhage. 3. No mass effect or midline shift. Head MRA 08/06/22 13:59 IMPRESSION: 1. Very limited evaluation of the cerebral arteries due to patient motion during the examination. 2. Small and truncated RIGHT posterior cerebral artery. This may be normal variant for this patient or in part due to motion. No thrombus is identified. May be narrowed due to spasm. Laboratory Results WBC 10.1 10^3/uL (4.0-10.0) H 08/08/22 03:28 RBC 4.67 10^6/uL (4.1-5.3) 08/08/22 03:28 Hgb 14.0 g/dL (11.7-16.6) 08/08/22 03:28 Hct 40.1 % (42.0-52.0) L 08/08/22 03:28 MCV 85.9 fl (80-94) 08/08/22 03: MCH 30.0 pg (28.0-34.0) 08/08/22 03: MCHC 34.9 g/dL (30.0-36.0) 08/08/22 03: RDW 12.8 % (12.1-15.1) 08/08/22 03:28 Plt Count 209 10^3/cmm (130-400) 08/08/22 03:28 MPV 11.1 fL (7.4-10.4) H 08/08/22 03:28 Neut % (Auto) 50.6 % 08/08/22 03: Lymph % (Auto) 36.4 % 08/08/22 03: [place] % (Auto) 8.0 % 08/08/22 03: Eos % (Auto) 4.2 % 08/08/22 03: Baso % (Auto) 0.5 % 08/08/22 03:28 Neut # (Auto) 5.11 10^3/uL (1.8-7.7) 08/08/22 03:28 Lymph # (Auto) 3.7 10^3/uL (0.8-4.8) 08/08/22 03:28 [place] # (Auto) 0.8 10^3/uL (0.2-0.9) 08/08/22 03: Eos # (Auto) 0.4 10^3/uL (0.0-0.8) 08/08/22 03:28 Baso # (Auto) 0.1 10^3/uL (0.0-0.1) 08/08/22 03:28 Nucleated RBC % (auto) 0 % 08/08/22 03: Nucleated RBCs # 0.0 /100WBC 08/08/22 03:28 ESR 13 mm/hr (0-10) H 08/07/22 03:30 PT 14.20 SECONDS (12.1-14.9) 08/04/22 08:51 INR 1.07 (0.8-1.2) 08/04/22 08:51 APTT 23.0 SECONDS (23.9-36.7) L 08/04/22 08:51 Sodium 140 mmol/L (136-145) 08/09/22 04:59 Potassium 4.1 mmol/L (3.5-5.1) 08/09/22 04:59 Chloride 108 mmol/L (98-107) H 08/09/22 04:59 Carbon Dioxide 22 mmol/L (22-29) 08/09/22 04:59 Anion Gap 14.1 (5-19) 08/09/22 04:59 BUN 12 mg/dL (8-23) 08/09/22 04:59 Creatinine 0.9 mg/dL (0.7-1.2) 08/09/22 04:59 GFR Calculation Not Reportable 08/09/22 04:59 Glucose 98 mg/dL (65-115) 08/09/22 04:59 POC Glucose 111 mg/dL (70-110) H 08/07/22 06:42 Estimat Average Glucose 114 08/04/22 08:40 Hemoglobin A1c 5.6 % (4.0-6.0) 08/04/22 08:40 Calculated Osmolality 290 mOsm/kg (285-295) 08/09/22 04:59 Calcium 8.8 mg/dL (8.5-10.5) 08/09/22 04:59 Total Bilirubin 1.3 mg/dL (0.15-1.2) H 08/07/22 03:30 AST 22 U/L (0-40) 08/07/22 03:30 ALT 10 U/L (0-41) 08/07/22 03:30 Alkaline Phosphatase 72 U/L (40-130) 08/07/22 03:30 C-Reactive Protein 48.7 mg/L (0.0-4.9) H 08/07/22 03:30 Total Protein 6.0 g/dL (6.6-8.7) L 08/07/22 03:30 Albumin 3.5 g/dL (3.5-5.2) 08/07/22 03:30 Globulin 2.5 g/dL (1.3-4.6) 08/07/22 03:30 Triglycerides 107 mg/dL (0-150) 08/05/22 04:35 Cholesterol 130 mg/dL (0-200) 08/05/22 04:35 LDL Cholesterol, Calc 74 mg/dL (50-129) 08/05/22 04:35 HDL Cholesterol 35 mg/dL (60-100) L 08/05/22 04:35 LDL/HDL Ratio 2.11 RATIO (0.00-3.22) 08/05/22 04:35 Cholesterol/HDL Ratio 3.71 mg/dL (1.0-5.00) 08/05/22 04:35 TSH 1.38 uIU/mL (0.27-4.20) 08/04/22 08:40 Urine Color Yellow (Yellow) 08/04/22 09:55 Urine Appearance Clear (CLEAR) 08/04/22 09:55 Urine pH 5 (5-7) 08/04/22 09:55 Ur Specific [place] 1.005 (1.005-1.030) 08/04/22 09:55 Urine Protein Neg (Negative) 08/04/22 09:55 Urine Glucose (UA) Norm (Normal) 08/04/22 09:55 Urine Ketones Negative (Negative) 08/04/22 09:55 Urine Blood Neg (Negative) 08/04/22 09:55 Urine Nitrate Negative (Negative) 08/04/22 09:55 Urine Bilirubin Neg (Negative) 08/04/22 09:55 Urine Urobilinogen Norm mg/dL (Negative) 08/04/22 09:55 Ur Leukocyte Esterase Negative (Negative) 08/04/22 09:55 Urine Opiates Screen Negative ng/mL (Negative) 08/04/22 09:55 Ur Barbiturates Screen Negative ng/mL (Negative) 08/04/22 09:55 Ur Phencyclidine Scrn Negative ng/mL (Negative) 08/04/22 09:55 Ur Amphetamines Screen Negative ng/mL (Negative) 08/04/22 09:55 U Benzodiazepines Scrn Negative ng/mL (Negative) 08/04/22 09:55 Urine Cocaine Screen Negative ng/mL (Negative) 08/04/22 09:55 U Marijuana (THC) Screen Negative ng/mL (Negative) 08/04/22 09:55 Vitals Last Vital Signs Temp 97.9 F 08/09/22 07:32 Pulse 57 L 08/09/22 07:32 Resp 16 08/09/22 07:32 BP 126/81 08/09/22 07:32 Pulse Ox 98 08/09/22 07:32 O2 Del Method 08/09/22 07:32 Discharge Plan Discharge Patient Disposition: Xfer SNF Condition: Stable Prescriptions: New atorvastatin 40 mg Tablet 80 mg PO BEDTIME Qty: 90 4RF olanzapine 10 mg Tablet,Disintegrating 10 mg PO Q12H PRN (Reason: Agitation) Qty: 10 0RF clopidogrel 75 mg Tablet 75 mg PO DAILY Qty: 20 0RF tamsulosin 0.4 mg Capsule 0.8 mg PO DAILY Qty: 90 2RF aspirin 81 mg tablet,delayed release (DR/EC) 81 mg PO DAILY Qty: 90 3RF Continued Euthyrox 100 mcg tablet 100 mcg PO DAILY Discontinued lisinopril 20 mg tablet 20 mg PO DAILY simvastatin 10 mg tablet 10 mg PO BEDTIME amlodipine 5 mg tablet 5 mg PO DAILY Discharge Orders: Discharge Order (Routine); Ordered 08/09/22 Ordered By: Chary Hahn Other Ambulatory Orders: MCT/Event Monitor 14 Days (Routine) Timeframe: 2 Weeks Facility: [facility] - Location: Radiology Ordered By: Chary Hahn [facility]errals: [facility] [Outside] Discharge Diet: Cardiac Discharge Activity: Increase activity as tolerated and As per PT/OT instructions Patient Instructions: Aspirin (By mouth), Atorvastatin (By mouth), Tamsulosin (By mouth), Clopidogrel (By mouth), Opioid Safety, Pain Management Activity Restrictions/Additional Instructions: APPOINTMENT FOR HEART MONITOR AT [facility] ON AT 10:45 AM Discharge Attestations Time Spent in Discharge Care*: less than 30 min Quality Metrics Clinical Quality Measures [ No reported AMI, CVA or VTE this stay] Coding Level of Care Code Acute Chg FW DC note Diagnoses Tunnel vision H53.489 Blurred vision, left eye H53.8 Acute ischemic multifocal posterior circulation stroke I63.539 Hyperlipidemia E78.5 Hypothyroidism E03.9 Acute urinary retention R33.8 Difficult Bello catheter placement T83.9XXA BPH loc w urin obs/LUTS N40.1
[2022-08-09 13:17] LABS: SARS Covid-2 Antigen Negative (Negative)
--- NOTE | 2022-08-09 14:03 | PC.SOCIAL ---
IMM Update pg 2 of IMM updated and reviewed w/ patient and his sig. other. Copy provided and copy in chart dated and initialed.
[2022-08-09 14:38] LABS: Anti-Nuclear Antibody Screen NEGATIVE (NEGATIVE)
--- NOTE | 2022-08-09 17:20 | P.NPUCON_ITS ---
Providers/Reason for Consult Consulting Physican/Specialty*: Junior Dixon MD Reason for Consult*: decision making capacity Attending Physician: Chary Hahn MD Psych Consult HPI History of Present Illness Lucho Echeverria is a 72 year old male admitted after subacute onset of visual loss. The patient was found to have a posterior vascular event involving the left vertebral artery and patient is scheduled for discharge at [facility]. Psychiatry has been consulted regarding additional input regarding decision-making Capacity of the patient. The patient on interview had reported that he had arrived in the hospital due to a stroke. He minimized any problems with depression or anxiety. He had reported having difficulties with trusting others. He had reported not remembering any details regarding his symptoms that had led to his hospitalization here. He was unable to provide details regarding how many days he had been hospitalized. He had been unable to provide any clear understanding regarding his proposed treatment and was unable to provide any names of medications that he was taking other than Synthroid for his thyroid problems . He was not able t to provide any answers regarding what would happen if he had chosen not to continue his treatment. Medical Hx/Surgical History/Allergies: see Detailed evaluation, patient unable to provide any details Social History: Patient reports being with his girlfriend for the past 16 years. He reports that he has 1 daughter and was born in [facility]. He reports no history of drug or alcohol use. He denied any history of trauma. Current medications: see below. Meds Home Medications and Allergies Home Medications Medication Instructions Recorded Confirmed Last Taken Type levothyroxine 100 mcg tablet 100 mcg PO DAILY 08/04/22 08/04/22 Unknown History (Euthyrox) aspirin 81 mg tablet,delayed 81 mg PO DAILY #90 tabs 08/09/22 Unknown Rx release atorvastatin 40 mg tablet 80 mg PO BEDTIME #90 tabs 08/09/22 Unknown Rx clopidogrel 75 mg tablet 75 mg PO DAILY #20 tabs 08/09/22 Unknown Rx olanzapine 10 mg disintegrating 10 mg PO Q12H PRN Agitation #10 08/09/22 Unknown Rx tablet tabs tamsulosin 0.4 mg capsule 0.8 mg PO DAILY #90 caps 08/09/22 Unknown Rx Allergies Allergy/AdvReac Type Severity Reaction Status Date / Time No Known Allergies Allergy Verified 08/03/22 17:06 Current Medications Current Medications Generic Name Dose Route Start Last Admin Trade Name Freq PRN Reason Stop Dose Admin Aspirin 325 mg 08/05/22 09:00 08/09/22 09:57 Aspirin 325 Mg Tablet PO 325 mg DAILY QUENTIN Administration Atorvastatin Calcium 80 mg 08/04/22 21:00 08/08/22 20:04 Atorvastatin 40 Mg Tablet PO 80 mg BEDTIME QUENTIN Administration Clopidogrel Bisulfate 75 mg 08/05/22 09:00 08/09/22 09:57 Clopidogrel 75 Mg Tablet PO 75 mg DAILY QUENTIN Administration Enoxaparin Sodium 40 mg 08/04/22 20:00 08/08/22 20:04 Enoxaparin 40 Mg/0.4 Ml Syringe SUBCUT 40 mg Q24H QUENTIN Administration Levothyroxine Sodium 100 mcg 08/05/22 09:00 08/09/22 09:57 Levothyroxine 100 Mcg Tablet PO 100 mcg DAILY QUENTIN Administration Tamsulosin HCl 0.4 mg 08/04/22 20:00 08/09/22 09:57 Tamsulosin 0.4 Mg Capsule PO 0.4 mg DAILY QUENTIN Administration PFSH NPU PFSH: Medical History BPH (benign prostatic hyperplasia) Hyperlipidemia Hypertension Hypothyroidism Surgical History History of exploratory laparotomy Secondary to bowel obstruction, adhesions found Family History Other Hypertension Stroke Social History Smoking and tobacco status: current every day smoker smokeless tobacco Smokeless tobacco user: chewing tobacco Alcohol intake: never Current occupation: Do not know if they have steps or handrail Mental Status Exam MSE Comments: The patient was alert and oriented to person but was unable to tell the junior technical writer of this note the date as he thought the year was 2001 although he reported that it was a Tuesday. He did not know the name of the hospital he was currently at for the floor. He was able to name specific objects such as a pencil upon the presence of touch only as he did appear to have some visual impairment although he was able to read something in the center of his vision in large letters with struggles with identification of objects in periphery. He described his mood is good. His affect appeared euthymic and mood congruent. His thought process was superficial and concrete. He was unable to abstract in regards to interpretation of any proverbs. He did not appear to be responding to internal stimuli. There was no evidence of any delusional thinking although he did to be at times somewhat paranoid. His short-term memory appeared impaired as he was unable to recall 3 words after 5 minutes although he did register the 3 words initially. He repeatedly asked during the examination who are you despite having extensive conversations prior to that time. His a ttention span appeared impaired. His insight judgment and judgment were both poor. His impulse control appeared guarded at this time. He was able to identify his girlfriend by sight and sound. He was also able to recall his date of although he was unable to state his age. He was also able to recall the past 3 presidents without any particular issue. Vitals/I&O/Wt Last Vital Signs Temp 97.4 F L 08/09/22 11:31 Pulse 69 08/09/22 11:31 Resp 16 08/09/22 11:31 BP 107/65 08/09/22 11:31 Pulse Ox 95 08/09/22 11:31 O2 Del Method 08/09/22 11:31 08/09/22 08/09/22 08/09/22 06:59 14:59 22:59 Intake Total 600 / 600 Output Total 350 / 1100 Balance -350 / -20 600 / 600 Physical Exam Urinary Catheter Management: Bello: Cath Placed During This Visit: yes Reason for Continuing Indwelling Catheter: Other Urinary Catheter Date of Insertion: 08/04/22 Data NPU : 08/08/22 03:28 08/09/22 04:59 A&P Assessment and plan (1) Tunnel vision: (2) Blurred vision, left eye: (3) Acute ischemic multifocal posterior circulation stroke: (4) Hypertension: (5) Hyperlipidemia: (6) Hypothyroidism: (7) Acute urinary retention: (8) Difficult Bello catheter placement: Plan Patient is a 72-year-old white male with recent onset of a posterior infarct with significant vision loss and some memory loss at this time. There appears to be some substantial improvement over the past few days but he will continue to require rehabilitation and appears to have significant lack of ability to make any decisions regarding his own care. The patient given his current neurological condition appears to be lacking the ability to make decisions and at least temporarily may require guardianship. He absolutely appears to have difficulties with understanding his medical condition and the treatment. He would be at risk of potentially harming himself as he appears to be having difficulties both with his vision and with remembering days. He appears to have no capacity at this time to balance pluses and minuses regarding treatment and appeared to show some general distrust towards the doctor on interview. He also appeared to show little ability to have an understanding of what will happen in the future if nothing is done and appeared to have no regards regarding the benefits or risks of continued treatment. Attestations NPU Medical Necessity Statement*: He lacks decision making capacity at this time. 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
[2022-08-09] MEDS: atorvastatin 40 mg Tablet 80 MG PO (21:26)
[2022-08-09] MEDS: enoxaparin 40 mg/0.4 mL Syringe SUBCUT (21:27)
[2022-08-09 23:34] LABS: PROTEIN S, ACTIVITY 104 % normal (70-150)
[2022-08-10] VITALS (10 sets, daily range): BP systolic 119–143; BP diastolic 73–85; PULSE 57–146; RESP 16–17; TEMP 36.6–36.8; O2SAT 95–98
[2022-08-10] MEDS: tamsulosin 0.4 mg Capsule PO (08:46)
[2022-08-10] MEDS: levothyroxine 100 mcg Tablet PO (08:46)
[2022-08-10] MEDS: clopidogrel 75 mg Tablet PO (08:46)
[2022-08-10] MEDS: aspirin 325 mg Tablet PO (08:46)
--- NOTE | 2022-08-10 08:53 | PC.NURSE ---
Catheter removed. Patient tolerated well. 8cc of NS removed from balloon. 100mL of urine in bag. Slight bleeding and small amount of pink drainage upon removal.
--- NOTE | 2022-08-10 10:38 | P.PN_ITS ---
Subjective Subjective: Patient is awake and alert In good spirits Vitals/I&O/Wt Last Vital Signs Temp 97.9 F 08/10/22 08:00 Pulse 66 08/10/22 08:00 Resp 16 08/10/22 08:00 BP 126/81 08/10/22 08:00 Pulse Ox 97 08/10/22 08:00 O2 Del Method 08/10/22 04:00 08/09/22 08/10/22 08/10/22 22:59 06:59 14:59 Intake Total 480 / 1080 120 / 1200 Output Total 1800 / 1800 Balance 480 / 1080 -1680 / -600 Physical Exam Narrative: No new focal deficit Left-sided visual field defect Upper arm weakness has improved Able to work with PT No new focal deficit Awake and alert Sitting in a chair Hemodynamic stable Afebrile Urinary Catheter Management: Bello: Cath Placed During This Visit: yes, but has since been removed by the nurse Reason for Continuing Indwelling Catheter: Decision to DC Catheter Urinary Catheter Date of Insertion: 08/04/22 Date Urinary Catheter Removed: 08/10/22 Time Urinary Catheter Discontinued: 08:30 Data : 08/08/22 03:28 08/09/22 04:59 A&P Assessment and plan (1) Tunnel vision: (2) Blurred vision, left eye: (3) Acute ischemic multifocal posterior circulation stroke: (4) Hypertension: (5) Hyperlipidemia: (6) Hypothyroidism: (7) Acute urinary retention: (8) Difficult Bello catheter placement: (9) BPH loc w urin obs/LUTS: Plan Patient could not be discharged to assisted because now assisted is requesting completion of temporary guardianship legal paperwork I would not change any of his medications He is afebrile hemodynamic stable does not need any antihypertensive regimen Continue medications as is Continue PT/OT on daily basis Tolerating his diet Voiding trial today remove Bello catheter increase the dose of tamsulosin Attestations Medical Necessity Statement*: Waiting placement Time Spent in Patient Care: 40 Coding Level of Care Code Acute 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
[2022-08-10] MEDS: enoxaparin 40 mg/0.4 mL Syringe SUBCUT (20:36)
[2022-08-10] MEDS: atorvastatin 40 mg Tablet 80 MG PO (20:36)
[2022-08-11] VITALS (10 sets, daily range): BP systolic 124–138; BP diastolic 75–84; PULSE 55–90; RESP 16–18; TEMP 36.5–37.3; O2SAT 96–97
[2022-08-11 04:58] LABS: PROTEIN C, ACTIVITY 113 % (70-180)
[2022-08-11 06:23] LABS: Antithrombin III Activity 95 % normal (80-135)
--- NOTE | 2022-08-11 09:53 | PM.DCS ---
Discharge Providers Date of Admission: 08/04/22 18:37 Date of Discharge: August 11, 2022 Attending Provider at Admission: Preston Cortez MD Attending Provider at Discharge: Chary Hahn MD Diagnoses at Discharge Discharge Diagnosis (1) Tunnel vision: Status: Acute (2) Blurred vision, left eye: Status: Acute (3) Acute ischemic multifocal posterior circulation stroke: Status: Acute (4) Hypertension: Status: Acute (5) Hyperlipidemia: Status: Acute (6) Hypothyroidism: Status: Acute (7) Acute urinary retention: Status: Acute (8) Difficult Bello catheter placement: Status: Acute (9) BPH loc w urin obs/LUTS: Status: Acute Reason for Visit Reason for Visit: STROKE Hospital Course Hospital Course Please see detailed note from neurology and Dr. Cortez. Patient has been managed for posterior circulation stroke during his stay in the hospital. In brief patient presented to the hospital for subacute onset of visual loss. He was seen in the ER for possible stroke however it was seemed less likely because his symptoms resolved by the time he was seen in the ER however at home his brother noticed that he was confused at that time EMS was dispatched, on second visit he had left-sided hemiparesis with left-sided visual loss CT angiogram of head and neck showed left vertebral artery poor visualization however he was deemed not a good candidate for tPA or thrombectomy. He was managed by Dr. Cortez throughout the week I took over his care over the weekend. His girlfriend and the family both agreed that he needs short-term rehab to gain some strength back. He has been accepted at [facility]. Please note there are some tough social/family dynamics between the girlfriend and the rest of the family. Mr. Echeverria stating that he would live with his girlfriend and becomes very agitated when we had a long conversation on Tuesday regarding care home placement. Eventually he agreed to go to a care home. There is some improvement of left-sided arm weakness, he did very well with PT. He is tolerating his diet he is actually on regular diet. He did well over the weekend his mood and behavior improved as well. He does have peripheral vision loss. Left greater than right. No signs of vasculitis or temporal arteritis ESR CRP not remarkably high. 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 However his vitals remained pretty stable there were no signs of hypertensive emergency or hypotension. At the time of discharge I will discontinue his amlodipine and lisinopril his blood pressure has been in 120s systolic. I will give him aspirin, Plavix high-dose statins and Flomax. Please note Bello catheter was placed by Dr. Orta because it was a very difficult. Patient did well with voiding trial I will also put him on event monitor. Throughout his hospitalization he has remained in sinus rhythm Echo unremarkable. No signs of vasculitis, DAMIEN level is pending protein C protein S activity pending. 08/11 patient has made significant progress he is able to tell me his name date of he is very energetic and excited to go home, doing well with physical therapy seen was made to discharge him home with home health services and PT referral. Daughter is in agreement. Patient is happy to return home. Physical Exam Narrative: Patient has peripheral vision loss Left-sided arm weakness has improved significantly He is able to keep his arm in the air against gravity for more than 5 seconds Able to work with PT Tolerating diet S1, S2 Abdomen soft Currently on room air Pleasant and cooperative during my evaluation Short attention span Awake and alert, oriented to time place and person Urinary Catheter Management: Bello: Cath Placed During This Visit: yes, but has since been removed by the nurse Reason for Continuing Indwelling Catheter: Decision to DC Catheter Urinary Catheter Date of Insertion: 08/04/22 Date Urinary Catheter Removed: 08/10/22 Time Urinary Catheter Discontinued: 08:30 Discharge Data Studies Completed and Pending Completed Studies During Hospitalization Category Date Time Status CT angio headneck* [id number] Stat Cat Scan 08/04/22 08:[address] head wo con* [id number] Stat Cat Scan 08/04/22 08:[address] head wo con* [id number] Stat Cat Scan 08/05/22 12:30 Completed XR chest 1V portable [id number] Stat Exams 08/04/22 10:48 Completed MR angio head wo con [id number] Stat MRI 08/06/22 13:59 Completed MR head wo con* [id number] Stat MRI 08/06/22 13:59 Completed CV. echo complete* [id number] Routine Ultrasound 08/06/22 11:10 Completed Radiology Impressions Head/Neck CTA 08/04/22 08:42 IMPRESSION: 1. No significant ICA stenosis bilaterally. Both ICAs are patent to the skull base. 2. No significant flow-limiting intracranial stenosis. Normal vascularity to the JAK and MCA territories bilaterally. 3. RIGHT dominant vertebral artery. Poor intermittent flow in the smaller LEFT vertebral artery with no significant calcified plaque may be due to dissection. Severe stenosis at the LEFT vertebral origin. LEFT vertebral artery reconstitutes distally. 4. Normal flow in the basilar artery and DEVELOPMENT GEOLOGIST territory bilaterally. 5. No other suspicious findings. Notified Elvin Lynn DO at 08/04/2022 9:18 AM. Chest X-Ray 08/04/22 10:48 IMPRESSION: No acute cardiopulmonary process. Head CT 08/05/22 12:30 IMPRESSION: 1. No evidence of intracranial hemorrhage 2. Interval development of low-attenuation change in a symmetric configuration in the parasagittal occipital lobes extending into the posterior temporal lobes and parahippocampal gyrus suspicious for subacute ischemia versus possibly PRES. 3. Additional small focus of low-attenuation involving the posterior limb RIGHT internal capsule along the RIGHT lateral thalamus. 4. No hydrocephalus. 5. No other interval changes. Notified Preston Cortez MD at 08/05/2022 1:36 PM. D/W Dr. Santana 08/05/2022 1:37 PM Head MRI 08/06/22 13:59 IMPRESSION: 1. Quality is compromised by motion artifact. 2. Symmetric restricted diffusion in the parasagittal occipital lobes extending into the posterior medial temporal lobes and RIGHT internal capsule and thalamus. These findings are most consistent with PRES. Diffusion-weighted changes indicate an underlying component of ischemia. No hemorrhage. 3. No mass effect or midline shift. Head MRA 08/06/22 13:59 IMPRESSION: 1. Very limited evaluation of the cerebral arteries due to patient motion during the examination. 2. Small and truncated RIGHT posterior cerebral artery. This may be normal variant for this patient or in part due to motion. No thrombus is identified. May be narrowed due to spasm. Laboratory Results WBC 10.1 10^3/uL (4.0-10.0) H 08/08/22 03:28 RBC 4.67 10^6/uL (4.1-5.3) 08/08/22 03:28 Hgb 14.0 g/dL (11.7-16.6) 08/08/22 03:28 Hct 40.1 % (42.0-52.0) L 08/08/22 03:28 MCV 85.9 fl (80-94) 08/08/22 03:28 MCH 30.0 pg (28.0-34.0) 08/08/22 03:28 MCHC 34.9 g/dL (30.0-36.0) 08/08/22 03:28 RDW 12.8 % (12.1-15.1) 08/08/22 03:28 Plt Count 209 10^3/cmm (130-400) 08/08/22 03:28 MPV 11.1 fL (7.4-10.4) H 08/08/22 03:28 Neut % (Auto) 50.6 % 08/08/22 03:28 Lymph % (Auto) 36.4 % 08/08/22 03:28 Bonner % (Auto) 8.0 % 08/08/22 03:28 Eos % (Auto) 4.2 % 08/08/22 03:28 Baso % (Auto) 0.5 % 08/08/22 03:28 Neut # (Auto) 5.11 10^3/uL (1.8-7.7) 08/08/22 03:28 Lymph # (Auto) 3.7 10^3/uL (0.8-4.8) 08/08/22 03:28 Bonner # (Auto) 0.8 10^3/uL (0.2-0.9) 08/08/22 03:28 Eos # (Auto) 0.4 10^3/uL (0.0-0.8) 08/08/22 03:28 Baso # (Auto) 0.1 10^3/uL (0.0-0.1) 08/08/22 03:28 Nucleated RBC % (auto) 0 % 08/08/22 03:28 Nucleated RBCs # 0.0 /100WBC 08/08/22 03:28 ESR 13 mm/hr (0-10) H 08/07/22 03:30 PT 14.20 SECONDS (12.1-14.9) 08/04/22 08:51 INR 1.07 (0.8-1.2) 08/04/22 08:51 APTT 23.0 SECONDS (23.9-36.7) L 08/04/22 08:51 Prot C Funct Activity 113 % (70-180) 08/05/22 14:25 Protein S Activity 104 % normal (70-150) 08/05/22 14:25 Antithrombin III Activ 95 % normal (80-135) 08/05/22 14:25 Sodium 140 mmol/L (136-145) 08/09/22 04:59 Potassium 4.1 mmol/L (3.5-5.1) 08/09/22 04:59 Chloride 108 mmol/L (98-107) H 08/09/22 04:59 Carbon Dioxide 22 mmol/L (22-29) 08/09/22 04:59 Anion Gap 14.1 (5-19) 08/09/22 04:59 BUN 12 mg/dL (8-23) 08/09/22 04:59 Creatinine 0.9 mg/dL (0.7-1.2) 08/09/22 04:59 GFR Calculation Not Reportable 08/09/22 04:59 Glucose 98 mg/dL (65-115) 08/09/22 04:59 POC Glucose 111 mg/dL (70-110) H 08/07/22 06:42 Estimat Average Glucose 114 08/04/22 08:40 Hemoglobin A1c 5.6 % (4.0-6.0) 08/04/22 08:40 Calculated Osmolality 290 mOsm/kg (285-295) 08/09/22 04:59 Calcium 8.8 mg/dL (8.5-10.5) 08/09/22 04:59 Total Bilirubin 1.3 mg/dL (0.15-1.2) H 08/07/22 03:30 AST 22 U/L (0-40) 08/07/22 03:30 ALT 10 U/L (0-41) 08/07/22 03:30 Alkaline Phosphatase 72 U/L (40-130) 08/07/22 03:30 C-Reactive Protein 48.7 mg/L (0.0-4.9) H 08/07/22 03:30 Total Protein 6.0 g/dL (6.6-8.7) L 08/07/22 03:30 Albumin 3.5 g/dL (3.5-5.2) 08/07/22 03:30 Globulin 2.5 g/dL (1.3-4.6) 08/07/22 03:30 Triglycerides 107 mg/dL (0-150) 08/05/22 04:35 Cholesterol 130 mg/dL (0-200) 08/05/22 04:35 LDL Cholesterol, Calc 74 mg/dL (50-129) 08/05/22 04:35 HDL Cholesterol 35 mg/dL (60-100) L 08/05/22 04:35 LDL/HDL Ratio 2.11 RATIO (0.00-3.22) 08/05/22 04:35 Cholesterol/HDL Ratio 3.71 mg/dL (1.0-5.00) 08/05/22 04:35 TSH 1.38 uIU/mL (0.27-4.20) 08/04/22 08:40 Urine Color Yellow (Yellow) 08/04/22 09:55 Urine Appearance Clear (CLEAR) 08/04/22 09:55 Urine pH 5 (5-7) 08/04/22 09:55 Ur Specific [place] 1.005 (1.005-1.030) 08/04/22 09:55 Urine Protein Neg (Negative) 08/04/22 09:55 Urine Glucose (UA) Norm (Normal) 08/04/22 09:55 Urine Ketones Negative (Negative) 08/04/22 09:55 Urine Blood Neg (Negative) 08/04/22 09:55 Urine Nitrate Negative (Negative) 08/04/22 09:55 Urine Bilirubin Neg (Negative) 08/04/22 09:55 Urine Urobilinogen Norm mg/dL (Negative) 08/04/22 09:55 Ur Leukocyte Esterase Negative (Negative) 08/04/22 09:55 Urine Opiates Screen Negative ng/mL (Negative) 08/04/22 09:55 Ur Barbiturates Screen Negative ng/mL (Negative) 08/04/22 09:55 Ur Phencyclidine Scrn Negative ng/mL (Negative) 08/04/22 09:55 Ur Amphetamines Screen Negative ng/mL (Negative) 08/04/22 09:55 U Benzodiazepines Scrn Negative ng/mL (Negative) 08/04/22 09:55 Urine Cocaine Screen Negative ng/mL (Negative) 08/04/22 09:55 U Marijuana (THC) Screen Negative ng/mL (Negative) 08/04/22 09:55 DAMIEN Screen Negative (NEGATIVE) 08/05/22 14:25 SARS-CoV-2 Ag (Rapid) Negative (Negative) 08/09/22 11:35 Vitals Last Vital Signs Temp 97.7 F 08/11/22 07:51 Pulse 90 08/11/22 07:51 Resp 18 08/11/22 07:51 BP 124/75 08/11/22 07:51 Pulse Ox 96 08/11/22 07:51 O2 Del Method 08/11/22 07:51 Discharge Plan Discharge Patient Disposition: Home Condition: Stable Prescriptions: New tamsulosin 0.4 mg Capsule 0.8 mg PO DAILY Qty: 90 2RF tamsulosin 0.4 mg capsule 0.8 mg PO DAILY Qty: 60 0RF tamsulosin 0.4 mg Capsule 0.8 mg PO DAILY Qty: 90 0RF aspirin 81 mg tablet,delayed release (DR/EC) 81 mg PO DAILY Qty: 90 3RF Plavix 75 mg tablet 75 mg PO DAILY Qty: 18 0RF atorvastatin 80 mg tablet 80 mg PO DAILY Qty: 90 3RF tamsulosin 0.4 mg capsule 0.8 mg PO DAILY Qty: 90 0RF Continued Euthyrox 100 mcg tablet 100 mcg PO DAILY Discontinued lisinopril 20 mg tablet 20 mg PO DAILY simvastatin 10 mg tablet 10 mg PO BEDTIME amlodipine 5 mg tablet 5 mg PO DAILY Discharge Orders: Discharge Order (Routine); Ordered 08/09/22 Ordered By: Chary Hahn Other Ambulatory Orders: MCT/Event Monitor 14 Days (Routine) Timeframe: 2 Weeks Facility: [facility] - Location: Radiology Ordered By: Chary Hahn DME: John (Order) Location: None Selected Ordered By: Chary Hahn Physical Therapy Eval and Treat Outpatient (Order) Timeframe: 2 Months Facility: [facility] - Location: Physical Therapy Ordered By: Chary Hahn Referrals: [facility] [Outside] Discharge Diet: Cardiac Discharge Activity: Increase activity as tolerated and As per PT/OT instructions Patient Instructions: Aspirin (By mouth), Atorvastatin (By mouth), Tamsulosin (By mouth), Clopidogrel (By mouth), Opioid Safety, Pain Management Activity Restrictions/Additional Instructions: APPOINTMENT FOR HEART MONITOR AT [facility] ON AT 10:45 AM Discharge Attestations Time Spent in Discharge Care*: less than 30 min Quality Metrics Clinical Quality Measures [ No reported AMI, CVA or VTE this stay] Coding Level of Care Code Acute Chg FW DC note Diagnoses Tunnel vision H53.489 Blurred vision, left eye H53.8 Acute ischemic multifocal posterior circulation stroke I63.539 Hypertension I10 Hyperlipidemia E78.5 Hypothyroidism E03.9 Acute urinary retention R33.8 Difficult Bello catheter placement T83.9XXA BPH loc w urin obs/LUTS N40.1
[2022-08-11] MEDS: aspirin 325 mg Tablet PO (10:28)
[2022-08-11] MEDS: tamsulosin 0.4 mg Capsule 0.8 MG PO (10:29)
[2022-08-11] MEDS: levothyroxine 100 mcg Tablet PO (10:29)
[2022-08-11] MEDS: clopidogrel 75 mg Tablet PO (10:29)
--- NOTE | 2022-08-11 10:44 | PC.SOCIAL ---
IMM update IMM updated with patient at bedside. Copy of page 2 provided. Patient verbalized understanding. Copy in chart initialed, dated and timed.
--- NOTE | 2022-08-11 15:40 | PC.OT ---
PATIENT NOT SEEN FOR SKILLED OT TREATMENT TODAY HE IS SCHEDULED FOR D/C HOME
--- NOTE | 2022-08-11 16:04 | PC.NURSE ---
Discussed discharge follow up appointments, new medications, stopped medications. All questions answered and verbalized understanding by patient and significant other.
== END 2022-08-11 15:35 | disposition home health service (06) | DRG 65 ==
LOC: ER 13:19 → MEDSURG 23:00
PROVIDERS: Admitting Provider Internal Medicine; Emergency Provider Family Medicine; Visit Provider Internal Medicine
DX: I63.531 Cerebral infarction due to unspecified occlusion or stenosis of right posterior cerebral artery (principal); N13.8 Other obstructive and reflux uropathy; R27.0 Ataxia, unspecified; H53.462 Homonymous bilateral field defects, left side; R29.810 Facial weakness; R47.1 Dysarthria and anarthria; H53.482 Generalized contraction of visual field, left eye; R29.710 NIHSS score 10; N40.1 Benign prostatic hyperplasia with lower urinary tract symptoms; R33.8 Other retention of urine; R39.16 Straining to void; E78.5 Hyperlipidemia, unspecified; I10 Essential (primary) hypertension; E03.9 Hypothyroidism, unspecified; F17.220 Nicotine dependence, chewing tobacco, uncomplicated; R45.1 Restlessness and agitation
CPT/HCPCS: 36415; 36416; 51702; 51798; 70450; 70496; 70498; 70544; 70551; 71045; 80048; 80053; 80061; 80306; 81003; 82962; 83036; 84443; 85025; 85300; 85303; 85306; 85610; 85651; 85730; 86038; 86140; 87426; 92507; 92523; 92526; 92610; 93005; 93306; 96361; 96372; 96374; 96375; 96376; 97110; 97112; 97116; 97162; 97167; 97530; 97535; 99284; 99285; J1630; J1650; J2060; J2250; J2270; J3010; J3490; J7030; J7799; Q9967